=== PATIENT | female | born 1940 | race Caucasian/White ===

== ENCOUNTER 2017-04-15 08:26 | Inpatient (IN) | payer OTHER ==
[2017-03-27 10:25] VITALS: BMI 46.0
--- NOTE | 2017-03-27 10:56 | PAT Medication Instructions ---
Service Date Mar 27, 2017. Current Home Medication List Acetaminophen (Tylenol), 1,000 MG PO PRN Aspirin (Aspirin Ec), 81 MG PO QAM Calcium/Vitamin D (Os-Kelvin 500 Plus D), 1 TAB PO BID Celecoxib (Celebrex *), 200 MG PO QAM Wwbsqntvkwb-Tuevlrvxfsf-Qmidde (LEAPIN Digital Keys Joint Health Ad), 2 TAB PO QAM Lutein (Lutein), 20 MG PO QAM Multivitamin (Multivitamin), 1 TAB PO QAM Polyvinyl Alcohol-Povidone (Op (Refresh), 1 DROP OPB BID PRN for RN Psyllium (Metamucil Powder), 1 TSP PO QAM Tramadol (Ultram), 50 MG PO PRN Valsartan (Diovan), 320 MG PO QAM [Voltaren Gel], 1 DOSE TOP PRN Medication Instructions For Your Scheduled Surgery - Hold the following medications 2 weeks prior to surgery: Yvwbnwuzacb-Hjavsyvenbl-Ypspri (LEAPIN Digital Keys Joint Health Ad), 2 TAB PO QAM Lutein (Lutein), 20 MG PO QAM - Hold the following medications 24 hours prior to surgery: [Voltaren Gel], 1 DOSE TOP PRN - Hold the following medications the morning of surgery: Valsartan (Diovan), 320 MG PO QAM Multivitamin (Multivitamin), 1 TAB PO QAM Calcium/Vitamin D (Os-Kelvin 500 Plus D), 1 TAB PO BID Psyllium (Metamucil Powder), 1 TSP PO QAM - Take the following medications the morning of surgery with a sip of water OTHERWISE NOTHING TO EAT OR DRINK AFTER MIDNIGHT: Acetaminophen (Tylenol), 1,000 MG PO PRN (may take if needed up to 4 hours prior to surgery) Aspirin (Aspirin Ec), 81 MG PO QAM Celecoxib (Celebrex *), 200 MG PO QAM (instructed by surgeon to continue) Tramadol (Ultram), 50 MG PO PRN (may take if needed up to 4 hours prior to surgery) Polyvinyl Alcohol-Povidone (Op (Refresh), 1 DROP OPB BID PRN - Take the following medications as scheduled the night before surgery: Acetaminophen (Tylenol), 1,000 MG PO PRN Celecoxib (Celebrex *), 200 MG PO QAM (instructed by surgeon to continue) Tramadol (Ultram), 50 MG PO PRN Polyvinyl Alcohol-Povidone (Op (Refresh), 1 DROP OPB BID PRN If you have any questions please call us at [phone] or [phone] or [phone]
--- NOTE | 2017-03-27 11:51 | DIAGNOSTIC IMAGING REPORT ---
CHEST PREADMISSION(PA/LAT) CLINICAL HISTORY: 76 years-old Female presenting with preoperative assessment. TECHNIQUE: PA and lateral views of the chest were obtained. COMPARISON: None. FINDINGS: Cardiomediastinal silhouette normal. Apparent opacity at the paramediastinal right lung base may represent a prominent pericardial fat pad. Lungs and pleural spaces clear. Degenerative changes of the thoracic spine. Degenerative changes of the bilateral glenohumeral joints. Upper abdomen normal. IMPRESSION: 1. No acute cardiopulmonary disease. Electronically signed by: Zechariah Moran M.D. 03/27/2017 11:49 AM Dictated Date/Time: 03/27/2017 11:48 AM
[2017-03-27 12:00] LABS: URINE APPEARANCE CLEAR (CLEAR); URINE BILIRUBIN NEG (NEG); URINE COLOR YELLOW; URINE NITRITE NEG (NEG); URINE SPECIFIC GRAVITY 1.013 (1.000-1.030); UROBILINOGEN NEG (NEG); ZZUR CULT IF INDIC CLEAN CATCH NO
[2017-03-27 12:04] LABS: BASO % 0.3 %; BASO ABS # 0.02 K/uL (0-0.2); BUN/CREATININE RATIO 25.3 (10-20); CALCIUM 9.3 mg/dl (8.5-10.1); COMPLETE YES; CREATININE 0.73 mg/dl (0.60-1.20); EOS % 2.6 %; HEMATOCRIT 38.8 % (37-47); IG% 0.2 %; LYMPH % 30.6 %; LYMPH ABS # 1.92 K/uL (1.2-3.4); MEAN CORPUSCULAR HEMOGLOBIN 29.1 pg (25-34); MEAN CORPUSCULAR HGB CONC 33.5 g/dl (32-36); MEAN PLATELET VOLUME 10.1 fL (7.4-10.4); MONO % 7.8 %; NEUT % 58.5 %; PLATELET COUNT 235 K/uL (130-400); POTASSIUM 4.1 mmol/L (3.5-5.1); RED BLOOD COUNT 4.46 M/uL (4.2-5.4); WHITE BLOOD COUNT 6.27 K/uL (4.8-10.8)
[2017-03-27 12:06] LABS: MANUAL MICROSCOPIC REQUIRED? NO; REVIEW REQ? NO
[2017-03-27 12:07] LABS: PARTIAL THROMBOPLASTIN RATIO 1.1; PROTHROMBIN TIME (PATIENT) 10.7 SECONDS (9.0-12.0)
[2017-03-27 12:40] LABS: ESTIMATED AVERAGE GLUCOSE 108 mg/dl; HA1C FLAG Normal (Normal)
--- NOTE | 2017-04-14 17:55 | HISTORY & PHYSICAL EXAMINATION ---
DATE OF ADMISSION: 04/15/2017 CHIEF COMPLAINT: Chronic left shoulder pain. HISTORY OF PRESENT ILLNESS: This is a 76-year-old female patient of Dr. Mayo, complaining of chronic left shoulder pain, longstanding, now progressively getting worse. The patient has failed conservative treatment and has been diagnosed with end-stage osteoarthritis per clinical and radiographic exams. The patient wishes to proceed with a left total shoulder arthroplasty versus a reverse total shoulder arthroplasty. PAST MEDICAL HISTORY: Hypertension, history of pulmonary embolism, history of DVT, osteoarthritis, spine problems, neck problems, sciatica, and obesity. SOCIAL HISTORY: Nonsmoker and nondrinker. FAMILY HISTORY: Noncontributory. REVIEW OF SYSTEMS: The patient complains of chronic left shoulder pain and weakness. Otherwise, denies any shortness of breath, chest pain, nausea, vomiting or any other joint complaints. MEDICATIONS: Include valsartan 320 mg daily, Celebrex 200 mg daily, aspirin 81 mg daily, multivitamin daily, Lutein 20 mg daily, calcium plus vitamin D 1000 mg daily, Move Free daily, Metamucil daily, tramadol as needed, and Tylenol as needed. ALLERGIES: Include no known drug allergies. PHYSICAL EXAMINATION: GENERAL: Well-developed and well-nourished 76-year-old female in no acute distress. She is alert and oriented x3 and pleasant. HEENT: Normocephalic and atraumatic. Extraocular motions are intact. Pupils are equal and reactive to light. HEART: Regular rate and rhythm. No murmurs appreciated. LUNGS: Clear. ABDOMEN: Soft and nontender. Bowel sounds present. EXTREMITIES: Left shoulder reveals active range of motion to 170. She has crepitation with passive range of motion. She has 3/5 strength with external rotation and 4/5 strength, otherwise. NEUROLOGIC: Neurovascularly, she is intact in her left upper extremity. 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 She has a history of hypertension, pulmonary embolism, deep venous thrombosis, osteoarthritis, spine problems, neck problems, sciatica, and obesity. PLAN: The patient was advised of her diagnosis. Indications, risks, benefits, and postop course have all been reviewed. The patient wishes to proceed with a left total shoulder arthroplasty versus reverse total shoulder arthroplasty. Necessary consent forms, preoperative testing and clearances will be obtained.
[2017-04-15] VITALS (7 sets, daily range): BP systolic 105–160; BP diastolic 63–81; PULSE 69–94; TEMP 36.3–36.8; O2SAT 95–99; Ht 147.3 cm; Wt 101.3 kg
[~2017-04-15] VITALS: Ht 147.3 cm; Wt 101.3 kg
[~2017-04-15 08:26] MED LIST: ACET-1256 PO; ACETAMINOPHEN 500 MG TAB PO SCH; ASPI81TA28 PO; BUPIVACAINE 0.25% 30 ML VIAL ONE; CALC500C70 PO; CEFAZOLIN 2000 MG/60 ML D5W 60 ML IV SCH; CLB200 PO; CeleBREX 200 MG CAP PO SCH; DEXAMETHASONE 4 MG TAB PO SCH; DEXAMETHASONE SOD INJ 4 MG/ML VIAL ONE; FAMOTIDINE 20 MG TAB PO SCH; FENTANYL CITRATE INJ 50 MCG/1 ML 2 ML VIAL ONE; GABAPENTIN 300 MG CAP PO SCH; GLUC1TAB94 PO; LACTATED RINGER'S 1000ML 1,000 ML IV SCH; LACTATED RINGER'S 1000ML IV SCH; LIDOCAINE HCL 2% 2 ML VIAL (20MG/ML) ONE; LUTE20CA PO; METOCLOPRAMIDE HCL 10 MG TAB PO SCH; MIDAZOLAM HCL 1 MG/ML 2ML VIAL ONE; MULT-506 PO; POLYSOL OPB; PROPOFOL IV EMULSION 10 MG/ML 20 ML VIAL IV ONE; PSYL55.43 PO; TRAM-10 PO; VALS320T PO; VOLTAREN GEL TOP
--- NOTE | 2017-04-15 09:36 | History & Physical Bridge Note ---
H&P Re-Evaluation Bridge Note: I have examined the patient, reviewed the History & Physical and in the interval since the performance of the History & Physical I have noted the following changes of clinical significance: No changes noted
[2017-04-15] MEDS ORDERED: FENTANYL CITRATE INJ 50 MCG/1 ML 2 ML VIAL IV PRN (10:30)
[2017-04-15] MEDS ORDERED: ATROPINE SULFATE 0.1 MG/ML 5ML SYR IV PRN (10:30)
[2017-04-15] MEDS ORDERED: PROMETHAZINE HCL INJ 6.25 MG in SODIUM CHLORIDE 0.9% 50ML 50 ML IV PRN (10:30)
[2017-04-15] MEDS ORDERED: EpHEDrine SULFATE INJ 50 MG/ML AMP IV PRN (10:30)
[2017-04-15] MEDS ORDERED: ONDANSETRON INJ 2 MG/ML 2 ML VIAL IV PRN ×2 (10:30→15:15)
[2017-04-15] MEDS ORDERED: EpINEphrine HCL INJ 1 MG/ML 5ML SYRINGE ONE ×2 (11:14)
[2017-04-15] MEDS ORDERED: BACITRACIN 50000 UNIT VIAL ONE (11:14)
[2017-04-15] MEDS ORDERED: ONDANSETRON INJ 2 MG/ML 2 ML VIAL ONE (11:50)
[2017-04-15] MEDS ORDERED: DEXAMETHASONE SOD INJ 4 MG/ML VIAL ONE (11:50)
[2017-04-15] MEDS ORDERED: ROCURONIUM BROMIDE 10 MG/ML 5 ML VIAL IV ONE (11:50)
[2017-04-15] MEDS ORDERED: GLYCOPYRROLATE INJ 0.2 MG/ML VIAL ONE ×2 (12:40)
[2017-04-15] MEDS ORDERED: NEOSTIGMINE METHYLSULFATE 5 MG/5 ML SYR ONE (12:40)
[2017-04-15] MEDS ORDERED: EpHEDrine SULFATE INJ 50 MG/ML AMP ONE (12:41)
[2017-04-15] MEDS ORDERED: ZOLPIDEM TARTRATE 5 MG TAB PO PRN (15:15)
[2017-04-15] MEDS ORDERED: NALOXONE HCL 0.4 MG/1 ML VIAL/CARP IV PRN (15:15)
[2017-04-15] MEDS ORDERED: SOD PHOSPHATE/SOD BIPHOSPHATE ENEMA 132 ML BTL PR PRN (15:15)
[2017-04-15] MEDS ORDERED: MoRPHine SULFATE 2 MG/ML CARP IV PRN (15:15)
[2017-04-15] MEDS ORDERED: METOCLOPRAMIDE HCL INJ 5 MG/ML 2 ML VIAL IV PRN (15:15)
[2017-04-15] MEDS ORDERED: BISACODYL 10 MG SUPP PR PRN (15:15)
[2017-04-15] MEDS ORDERED: ARTIFICIAL TEARS OP SOLN OPB PRN ×2 (15:15)
--- NOTE | 2017-04-15 15:25 | [facility] Post Operative Brief Note ---
Immediate Operative Summary Operative Date Apr 15, 2017. Pre-Operative Diagnosis Left shoulder end-stage osteoarthritis Post-Operative Diagnosis Left shoulder end-stage osteoarthritis,biceps tenosynovitis ,rotator cuff tendinopathy,rotator cuff partial tear Procedure(s) Performed Left Total Shoulder Arthroplasty,rtc repair, bicep tenodesis Surgeon Dr. Mayo Complex Director Surgeon(s) Campbell Hinton PA-C Estimated Blood Loss 100 cc Findings as above Specimens A. Left humeral head Drains 2 hemovac Anesthesia general and regional Complication(s) None Disposition Recovery Room / PACU
--- NOTE | 2017-04-15 15:50 | DIAGNOSTIC IMAGING REPORT ---
LEFT SHOULDER MIN 2 VIEWS ROUTINE CLINICAL HISTORY: Post shoulder surgery COMPARISON: None FINDINGS: Alignment of the left shoulder arthroplasty is anatomic. There is no fracture or unexpected radiopaque foreign body. Drains and skin yaakov are present. IMPRESSION: Expected findings following left shoulder arthroplasty. Electronically signed by: Fermin Oconnor M.D. 04/15/2017 3:49 PM Dictated Date/Time: 04/15/2017 3:48 PM
--- NOTE | 2017-04-15 16:09 | Anesthesiology Progress Note ---
Anesthesia Post Op Note Date & Time Apr 15, 2017 at 16:08 Vital Signs Pain Intensity: 0 Vital Signs Past 12 Hours Date Time Temp Pulse Resp B/P (MAP) Pulse Ox O2 Delivery O2 Flow Rate FiO2 04/15/17 15:52 36.6 79 20 143/72 (89) 95 Nasal Cannula 2 04/15/17 15:46 133/73 04/15/17 15:46 133/73 04/15/17 15:44 79 24 95 04/15/17 15:44 79 24 04/15/17 15:44 79 24 95 04/15/17 15:44 79 24 04/15/17 15:41 125/64 04/15/17 15:41 125/64 04/15/17 15:39 79 18 04/15/17 15:39 79 18 95 04/15/17 15:39 79 18 04/15/17 15:39 79 18 95 04/15/17 15:36 142/82 04/15/17 15:36 142/82 04/15/17 15:34 82 21 97 04/15/17 15:34 82 21 04/15/17 15:34 82 21 04/15/17 15:34 82 21 97 04/15/17 15:31 139/73 04/15/17 15:31 139/73 04/15/17 15:29 82 19 04/15/17 15:29 82 19 04/15/17 15:29 82 19 97 04/15/17 15:29 82 19 97 04/15/17 15:25 136/70 04/15/17 15:25 136/70 04/15/17 15:24 19 04/15/17 15:24 83 19 04/15/17 15:24 36.6 83 18 130/72 94 Mask 10 04/15/17 15:24 19 04/15/17 15:24 83 19 04/15/17 08:51 36.8 69 20 160/80 99 Room Air Notes Mental Status: alert / awake / arousable, participated in evaluation Pt Amnestic to Procedure: Yes Nausea / Vomiting: adequately controlled Pain: adequately controlled Airway Patency, RR, SpO2: stable & adequate BP & HR: stable & adequate Hydration State: stable & adequate Anesthetic Complications: no major complications apparent Doing well. Pain controlled by ISB. No n/v
[2017-04-15] MEDS ORDERED: MoRPHine SULFATE 4 MG/ML 1 ML CARP\\VIAL IV PRN (16:30)
[2017-04-15] MEDS: D5W AND 1/2NSS + 20MEQ KCL 1,000 ML IV SCH (18:10)
--- NOTE | 2017-04-15 18:27 | Progress Note ---
Subjective Date of Service: Apr 15, 2017. Subjective Pt evaluation today including: conversation w/ patient, physical exam, chart review, lab review, review of inpatient medication list feeling good overall post op. no complaints. notes that prior PE was after driving ~17hrs back from [employer] nonstop. no other VTE events in her life. explained role of hospitalist/medical consult Review of Systems all other ROS otherwise negative except for as above Objective Vital Signs Date Time Temp Pulse Resp B/P (MAP) Pulse Ox O2 Delivery O2 Flow Rate FiO2 04/15/17 17:49 79 16 133/65 (87) 99 Nasal Cannula 2.0 04/15/17 17:12 36.4 80 16 136/81 (99) 97 Nasal Cannula 2.0 04/15/17 16:45 36.3 76 16 131/75 (93) 96 Nasal Cannula 2.0 04/15/17 16:31 140/82 04/15/17 16:27 75 17 96 04/15/17 16:27 75 17 04/15/17 16:26 132/78 04/15/17 16:22 85 19 04/15/17 16:22 85 19 96 04/15/17 16:21 127/94 04/15/17 16:17 86 19 04/15/17 16:17 84 19 95 04/15/17 16:16 132/74 04/15/17 16:12 77 16 96 04/15/17 16:12 77 16 04/15/17 16:11 139/104 04/15/17 16:07 75 15 04/15/17 16:07 75 15 97 04/15/17 16:06 130/79 04/15/17 16:02 82 19 96 04/15/17 16:02 83 19 04/15/17 16:01 143/72 04/15/17 15:57 82 21 96 04/15/17 15:57 81 21 04/15/17 15:56 128/81 04/15/17 15:52 76 24 97 04/15/17 15:52 76 24 04/15/17 15:52 36.6 79 20 143/72 (89) 95 Nasal Cannula 2 04/15/17 15:51 131/77 04/15/17 15:47 78 17 04/15/17 15:47 77 17 96 04/15/17 15:46 133/73 04/15/17 15:46 133/73 04/15/17 15:44 79 24 95 04/15/17 15:44 79 24 04/15/17 15:44 79 24 95 04/15/17 15:44 79 24 04/15/17 15:41 125/64 04/15/17 15:41 125/64 04/15/17 15:39 79 18 04/15/17 15:39 79 18 95 04/15/17 15:39 79 18 04/15/17 15:39 79 18 95 04/15/17 15:36 142/82 04/15/17 15:36 142/82 04/15/17 15:34 82 21 97 04/15/17 15:34 82 21 04/15/17 15:34 82 21 04/15/17 15:34 82 21 97 04/15/17 15:31 139/73 04/15/17 15:31 139/73 04/15/17 15:29 82 19 04/15/17 15:29 82 19 04/15/17 15:29 82 19 97 04/15/17 15:29 82 19 97 04/15/17 15:25 136/70 04/15/17 15:25 136/70 04/15/17 15:24 19 04/15/17 15:24 83 19 04/15/17 15:24 36.6 83 18 130/72 94 Mask 10 04/15/17 15:24 19 04/15/17 15:24 83 19 04/15/17 08:51 36.8 69 20 160/80 99 Room Air Physical Exam General Appearance: no apparent distress Eyes: EOMI ENT: hearing grossly normal Neck: trachea midline Respiratory/Chest: no respiratory distress, no accessory muscle use Extremities: normal range of motion (L arm in sling, immobilized. 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 anticipate ability to start tomorrow -if PRN BP control needed for marked HTN (SBP > 180, DBP > 100) can use hydralazine prn in the meantime VTE -prior provoked PE -encourage ambulation - d/w pt / family/ nursing -awaiting return info from ortho - will order heparin 5000 SQ Q12 as long as there are no surgical contraindications
[2017-04-15] MEDS ORDERED: HydrALAZINE 10 MG TAB PO PRN (18:30)
[2017-04-15] MEDS: CEFAZOLIN IV 2,000 MG in DEXTROSE 5% 50ML 50 ML IV SCH (20:13)
[2017-04-15] MEDS: OXYCODONE HCL 10 MG TABCR (OXYCONTIN) PO SCH (21:30)
[2017-04-15] MEDS: CALCIUM 600MG + VIT D 400 IU TAB PO SCH (21:31)
[2017-04-15] MEDS: DOCUSATE SODIUM 100 MG CAP PO SCH (21:32)
[2017-04-15] MEDS: ACETAMINOPHEN 500 MG TAB PO SCH (21:32)
[2017-04-16] VITALS (7 sets, daily range): BP systolic 91–116; BP diastolic 57–72; PULSE 60–85; TEMP 36.4–36.8; O2SAT 94–98
--- NOTE | 2017-04-16 00:18 | OPERATIVE REPORT ---
DATE OF OPERATION: 04/15/2017 INDICATION FOR PROCEDURE: A 76-year-old female with chronic left shoulder pain. She has had very longstanding left shoulder pain. She has had multiple injections, longstanding conservative management. Her radiographs now appeared to be aoab-fi-qyal in the glenohumeral joint. She had some glenoid bone loss and some medial migration of the humerus due to loss of the glenohumeral joint bone. She still has some maintained subacromial space. She has a type 2 acromion. She has an MRI demonstrating rotator cuff tendinopathy, likely some partial tearing of the rotator cuff, but this is an old MRI and does not have a recent MRI evaluation. She also had some biceps tenosynovitis noted. PREOPERATIVE DIAGNOSES: End-stage glenohumeral osteoarthritis left shoulder, rotator cuff tendinopathy, probable biceps tenosynovitis. POSTOPERATIVE DIAGNOSES: Left shoulder end-stage glenohumeral osteoarthritis, rotator cuff tendinopathy with high-grade partial tear bursal surface supraspinatus tendon, chronic biceps tenosynovitis with intact biceps. PROCEDURE: Left total shoulder arthroplasty with rotator cuff repair and biceps tenodesis. SURGEON: Dr. Mayo. IT SERVICE DELIVERY MANAGER: Campbell Hinton PA-C. ANESTHESIA: Regional block and general. OPERATIVE PROCEDURE: The patient taken to the operating room, anesthetized under regional block and general anesthetic. She was positioned on the operating room table in approximately 30- to 40-degree beach chair position. A towel roll was placed in the medial border of her left scapula. She was translated to left side of the bed so her shoulder could be manipulated off the bed. Her head was placed on a foam headrest. She had protective eyewear placed. She had TEDs and SCDs placed, Aden catheter was placed. Her left shoulder demonstrated she had an obese arm. She had more lower extremity obesity than she had around her shoulder. She had reasonably good passive motion. Her forward elevation was to about 150, external rotation around 50. Her abduction was about 80. Her shoulder clearly had joqp-[id number] crepitation in glenohumeral joint. Left shoulder was then sterilely prepped and draped with ChloraPrep. An anterior deltopectoral approach was performed. A longitudinal incision was made in the deltopectoral interval. Skin was incised sharply. The subcutaneous flaps were elevated off the fascia. The cephalic vein was dissected out and retracted laterally with the deltoid. The pectoralis was retracted medial. The upper centimeter of the pectoralis was released for inferior exposure. The clavipectoral fascia was divided at the lateral margin of the conjoint tendon and strap muscle, extended up to the CA ligament which was preserved. The patient had marked thickened biceps tenosynovitis. This biceps tenosynovium was resected and the biceps was tenodesed to the pectoralis tendon with kjujsn-pe-rqcpf #2 FiberWire suture and proximal biceps was resected. The subscapularis bursa was resected, there was very thickened subacromial bursa that was noted. There was a crescent-shaped high-grade partial tear of the supraspinatus with some osteophytes at the greater tuberosity in that area. The infraspinatus tendon was intact. The subscapularis tendon was intact. There was fairly large joint effusion. The bursa over the subscapularis and in the subacromial space was resected. The rotator cuff partial tear was debrided, the bone spurs resected off the greater tuberosity, leaving a high-grade crescent bursal-sided tear of the rotator cuff which was very small, it was only about a centimeter to 12 mm wide. The tear was not full-thickness. The rotator interval was opened up and the fluid was evacuated. A transtendinous incision was made through subscapularis tendon. A #1 Vicryl traction suture was made into the tendon capsule to control the free end. The circumflex vessels were tied off with silk ties and divided laterally. The subscapularis muscle lower fibers were divided at the level of the circumflex vessels down to the capsule and then reflected off the inferior capsule with a Kitner elevator and blunt Hohmann retractor was placed to protect the axillary nerve which was identified with a tug test. Humerus was gradually externally rotated to expose the inferior humeral osteophytes. The patient had large inferior humeral osteophytes from anterior to posterior. These were all resected with an artist chisel and a rongeur. This revealed the humeral head was completely devoid of any articular cartilage down to bone and had some bone loss. The capsule was released off the neck of the humerus. Then, the humerus was retracted posterior to the glenoid with a Fukuda retractor. The glenoid labrum remnants were resected and the remainder of the biceps tendon was resected. There was a large anterior-inferior osteophyte that was removed off the glenoid face, and releases were performed anterior-inferior and posterior-inferior using electrocautery on bone and a Antony elevator. Glenoid was completely devoid of any articular cartilage. There was some slight more posterior glenoid erosion but fairly concentric wear. There was significant bone loss. After releases were completed, the humerus was re-exposed with extension and external rotation. An oscillating saw was used to make an anatomic cut. The head fragment was between a 46 and a 43 mm diameter head. I used the Tornier Ascend Flex humeral components with Aequalis humeral head component and the Affiniti CortiLoc glenoid component. The humeral cut surface was initially retracted posterior to the glenoid, but the bone was a bit soft, so I felt we should prepare the humerus and use a cup protector first. So the humerus was re-exposed and the centralizing awl was used, followed by broaches up to a size 3 stem. Then, we placed cup protector in place and then retracted the humerus posterior to the glenoid. A central drill hole was made into the glenoid, followed by a reamer which we slightly eccentrically reamed anteriorly. Then, the central drill hole was widened and then the guide for the peripheral peg holes was placed and the peripheral peg holes were drilled. Then, we did a trial reduction for the 44 mm glenoid with a good trial fit with stable fixation. The trial was removed. The glenoid was irrigated copiously with antibiotic solution with bacitracin and then epinephrine-soaked tampon sponges were packed into all the holes and then the cement was vacuum mixed, we used Palacos G cement. The Affiniti CortiLoc glenoid size 44 was then cemented in position with central peg press fit. All excess cement was cleared. When the cement cured, attention was taken to humeral trial. We tried some trial heads and felt that the 46 x 17 standard offset head will give us the best stability. Small head gave too much posterior instability on exam. On exam with the 46 head, there was 50% shuck posteriorly, no posterior instability, and soft tissue tension on the subscap was satisfactory. Chose this for the final implant and noted the area of the eccentric offset. The final components were the 3A stem standard assembled to the 46 x 17 low offset (1.5 mm) Aequalis humeral head. After that component was assembled, we did harvest bone graft from the humeral head. Then, first the drill holes were made around the lesser tuberosity through the thicker bone in the bicipital groove and 3 transosseous #5 FiberWire sutures were placed. Then, we drilled holes and passed the passing suture with a Hewson suture passer and passed a #2 FiberWire through bone of the humerus, adjacent to the rotator cuff tear, and then we passed the tapered needle through the cuff to repair it in a horizontal mattress-like fashion and sutured this down with a secure repair. After the supraspinatus tendon was repaired, attention was taken to implanting the humeral component. The final component was a 3A standard stem assembled to the 46 x 17 low offset head. Before finally seating the humeral component, we did pack bone graft around the stem to enhance a tighter press fit. The humerus then reduced to the glenoid and the shoulder was noted to be stable. Then, the final closure was performed. The pectoralis was closed with esbquc-vd-cqaio #2 FiberWire. Two Hemovac drains were placed deep to the deltopectoral interval. Then, the subscapularis was repaired with the transosseous #5 FiberWire sutures using Helio-Eugenio suture technique, there was lateral row soft tissue fixation with dhjsaa-rx-xropb #2 FiberWire, and rotator interval was closed in maximal external rotation with interrupted #2 Fiberwire sutures which was about 45 degrees of external rotation. The arm was taken through range of motion now and repair was secured through 150 degrees of forward elevation, 45 degrees of external rotation and 90 degrees of abduction without any tension on the repair. After further irrigation, the deltopectoral interval was closed with yfszqu-jb-dpttr #1 Vicryl sutures, the subcutaneous tissues were closed with interrupted 2-0 Vicryl and skin was closed with yaakov. Sterile dressings applied and a sling immobilizer. Campbell Hinton PA-C, was my commercial real estate assistant. He functioned as commercial real estate assistant for the entire procedure. He assisted in soft tissue retraction, instrument management, suture management, and assisted in subcutaneous and skin closure and will participate in postoperative care of the patient. I attest to the content of the Intraoperative Record and any orders documented therein. Any exception s are noted below.
[2017-04-16] MEDS: D5W AND 1/2NSS + 20MEQ KCL 1,000 ML IV SCH ×2 (03:25→14:11)
[2017-04-16] MEDS: CEFAZOLIN IV 2,000 MG in DEXTROSE 5% 50ML 50 ML IV SCH (03:25)
[2017-04-16] MEDS ORDERED: NURSING DECISION MEDICATION ORDER SCH (03:30)
[2017-04-16] MEDS ORDERED: COUGH DROP (SUGAR FREE) LOZ 24 LOZ/1 BOX PO PRN (03:45)
[2017-04-16] MEDS: ACETAMINOPHEN 500 MG TAB PO SCH ×3 (06:14→22:23)
[2017-04-16 06:26] LABS: HEMATOCRIT 29.1 % (37-47); MEAN CELL VOLUME 88.4 fL (80-100); MEAN CORPUSCULAR HEMOGLOBIN 28.9 pg (25-34); MEAN CORPUSCULAR HGB CONC 32.6 g/dl (32-36); PLATELET COUNT 196 K/uL (130-400); RED BLOOD COUNT 3.29 M/uL (4.2-5.4)
--- NOTE | 2017-04-16 07:49 | Orthopedic Progress Note ---
Orthopedic Progress Note Date of Service Apr 16, 2017. Subjective Post OP Day: 1 Reports: feeling well, pain controlled w PO medications, Denies: complaints, chest pain, SOB, nausea / vomiting, light headedness, calf pain Objective N/V intact, capillary refill less than 2 sec., dressing C/D/I, A&O x3 Sling in tact, fingers mobile. Date Time Temp Pulse Resp B/P (MAP) Pulse Ox O2 Delivery O2 Flow Rate FiO2 04/16/17 03:16 36.4 69 16 91/57 (68) 96 Room Air 04/15/17 23:27 36.4 73 16 105/63 (77) 95 Room Air 04/15/17 20:43 36.4 84 16 110/68 (82) 95 Room Air 04/15/17 19:55 Room Air 04/15/17 19:30 94 16 127/78 (94) 99 Nasal Cannula 2.0 04/15/17 17:49 79 16 133/65 (87) 99 Nasal Cannula 2.0 04/15/17 17:12 36.4 80 16 136/81 (99) 97 Nasal Cannula 2.0 04/15/17 16:45 Nasal Cannula 2.0 04/15/17 16:45 36.3 76 16 131/75 (93) 96 Nasal Cannula 2.0 04/15/17 16:45 Nasal Cannula 2.0 04/15/17 16:31 140/82 04/15/17 16:27 75 17 96 04/15/17 16:27 75 17 04/15/17 16:26 132/78 04/15/17 16:22 85 19 04/15/17 16:22 85 19 96 04/15/17 16:21 127/94 04/15/17 16:17 86 19 04/15/17 16:17 84 19 95 04/15/17 16:16 132/74 04/15/17 16:12 77 16 96 04/15/17 16:12 77 16 04/15/17 16:11 139/104 04/15/17 16:07 75 15 04/15/17 16:07 75 15 97 04/15/17 16:06 130/79 04/15/17 16:02 82 19 96 04/15/17 16:02 83 19 04/15/17 16:01 143/72 04/15/17 15:57 82 21 96 04/15/17 15:57 81 21 04/15/17 15:56 128/81 04/15/17 15:52 76 24 97 04/15/17 15:52 76 24 04/15/17 15:52 36.6 79 20 143/72 (89) 95 Nasal Cannula 2 04/15/17 15:51 131/77 04/15/17 15:47 78 17 04/15/17 15:47 77 17 96 04/15/17 15:46 133/73 04/15/17 15:46 133/73 04/15/17 15:44 79 24 95 04/15/17 15:44 79 24 04/15/17 15:44 79 24 95 04/15/17 15:44 79 24 04/15/17 15:41 125/64 04/15/17 15:41 125/64 04/15/17 15:39 79 18 04/15/17 15:39 79 18 95 04/15/17 15:39 79 18 04/15/17 15:39 79 18 95 04/15/17 15:36 142/82 04/15/17 15:36 142/82 04/15/17 15:34 82 21 97 04/15/17 15:34 82 21 04/15/17 15:34 82 21 04/15/17 15:34 82 21 97 04/15/17 15:31 139/73 04/15/17 15:31 139/73 04/15/17 15:29 82 19 04/15/17 15:29 82 19 04/15/17 15:29 82 19 97 04/15/17 15:29 82 19 97 04/15/17 15:25 136/70 04/15/17 15:25 136/70 04/15/17 15:24 19 04/15/17 15:24 83 19 04/15/17 15:24 36.6 83 18 130/72 94 Mask 10 04/15/17 15:24 19 04/15/17 15:24 83 19 04/15/17 08:51 36.8 69 20 160/80 99 Room Air Laboratory Results 24 Hours: Test 04/16/17 05:09 Hematocrit 29.1 % Hemoglobin 9.5 g/dL Assessment & Plan Assessment: POD #1, Left TSA, biceps tenodesis, RCR Plan: PT/ OT DVT proph- ASA, Heparin per medicine D/C planning- Home w OPPT likely Thursday. Appreciate medicine input. Inhouse Planning Pain Management: Oxycontin, Morphine, PO Tylenol, Oxy IR DVT Prophylaxis: ASA, Heparin Drip Discharge Planning Discharge Planning: home with oppt Pain Management: Oxycontin, PO Tylenol, Oxy IR DVT Prophylaxis: ASA Therapy: Physical Therapy, Occupational Therapy
--- NOTE | 2017-04-16 07:51 | Discharge Instructions ---
Discharge Instructions Date of Service Apr 16, 2017. Admission Reason for Admission: Djd Of Shoulder Discharge Discharge Diagnosis / Problem: Left TSA, biceps tenodesis, RCR Discharge Goals Goal(s): Improve function Activity Recommendations Activity Limitations: as noted below . Instructions / Follow-Up Instructions / Follow-Up ACTIVITY RECOMMENDATIONS: SELF CARE INSTRUCTIONS AFTER TOTAL SHOULDER ARTHROPLASTY A. You may do daily exercises as taught in physical therapy while in hospital. No lifting with the operative arm. Please schedule your outpatient physical therapy appointment to begin within 2-3 days after leaving the hospital. Specific restrictions will be written on your physical therapy prescription that is provided to you. B. You are to wear your sling/immobilizer at all times EXCEPT when performing your daily exercises, participating in physical therapy and for hygiene purposes. C. You may perform dry, daily dressing changes. Please keep your incision covered. You may shower 48 hours after surgery. Do not apply soap or any ointment/ lotions directly over incision. Do not soak incision in bath tub/swimming pool. D. You may use ice as needed to operative shoulder. SPECIAL CARE INSTRUCTIONS: MEDICATION INSTRUCTIONS: *It is recommended you take Aspirin 325mg daily for four weeks post-op. VERY IMPORTANT TO READ AND REVIEW A. There are a few signs you need to watch for after you are home. Call [facility] at [phone] if you experience any of the followin. Increased severe shoulder pain. Some pain is expected especially when you exercise. 2. Increased swelling in you shoulder or arm; pain or swelling in either upper extremity. 3. Any fluid drainage from the incision. 4. Shortness of breath or chest pain. B. Please call [facility] at [phone] if you have any questions or concerns about your operation or recovery. C. Call your physician if: 1. Temperature is greater than 101 degrees (F). 2. Pain is not relieved by prescribed pain medications. 3. Increase drainage or redness from incision. 4. Unanswered questions or concerns. FOLLOW UP VISIT: Please call [facility] at [phone] to schedule a follow up appointment with Dr. Mayo or his PA in 12-14 days from your surgery date. Current Hospital Diet Patient's current hospital diet: Regular Diet Discharge Diet Recommended Diet: Regular Diet Procedures Procedures Performed: Left Total Shoulder Arthroplasty,rtc repair, bicep tenodesis Pending Studies Studies pending at discharge: no Laboratory Results Hemoglobin A1c Test 03/27/17 11:04 Range/Units Estimated Average Glucose 108 mg/dl Hemoglobin A1c 5.4 4.5-5.6 % Medical Emergencies . Who to Call and When: Medical Emergencies: If at any time you feel your situation is an emergency, please call 911 immediately. . Non-Emergent Contact Non-Emergency issues call your: Primary Care Provider . "Provider Documentation" section prepared by Campbell Hinton. . VTE Core Measure Inpt VTE Proph given/why not?: Other Anticoagulation (asa) [place] Drug Monitoring Program Search Results: patient reviewed within database, no issues identified
[2017-04-16 08:20] LABS: BUN/CREATININE RATIO 17.9 (10-20); CALCIUM 8.9 mg/dl (8.5-10.1); CREATININE 0.85 mg/dl (0.60-1.20); POTASSIUM 4.9 mmol/L (3.5-5.1)
--- NOTE | 2017-04-16 08:46 | Anesthesiology Progress Note ---
Anesthesia Post Op Note Date & Time Apr 16, 2017 at 08:45 Vital Signs Pain Intensity: 0.0 Vital Signs Past 12 Hours Date Time Temp Pulse Resp B/P (MAP) Pulse Ox O2 Delivery O2 Flow Rate FiO2 04/16/17 08:08 Room Air 04/16/17 08:03 36.6 72 16 100/60 (73) 97 Room Air 04/16/17 03:16 36.4 69 16 91/57 (68) 96 Room Air 04/15/17 23:27 36.4 73 16 105/63 (77) 95 Room Air Notes Mental Status: alert / awake / arousable Pt Amnestic to Procedure: Yes Nausea / Vomiting: adequately controlled Pain: adequately controlled Airway Patency, RR, SpO2: stable & adequate BP & HR: stable & adequate Hydration State: stable & adequate
--- NOTE | 2017-04-16 08:51 | Hospitalist Progress Note ---
Hospitalist Progress Note Date of Service Apr 16, 2017. (Haily Roper PA-C) Subjective Pt evaluation today including: conversation w/ patient, physical exam, chart review, lab review, review of studies Pain: 210 PO Intake: Good The patient was seen and examined this morning. Pt reports doing well. She was just up walking with PT and is waiting for OT to help teach her how to dress herself after shoulder surgery. She has been eating well without difficulty. Pt is not yet passing gas and has not had a bowel movement. She anticipates discharge home tomorrow. Pt lives alone but has a strong support system with neighbors who are willing to help shop for her, cook, and she has meals on wheels set up 3x a week. She plans on outpatient PT at [facility] rehab and has an appt next Thursday. Constitutional: No fever, No chills, No sweats Eyes: No diplopia, No problem reported ENT: + sore throat, No trouble swallowing Respiratory: No cough, No shortness of breath Cardiovascular: No chest pain, No palpitations Abdomen: No pain, No nausea, No vomiting, No diarrhea, No constipation Musculoskeletal: No joint pain, No muscle pain Neurologic: + numbness/tingling (From left wrist to left shoulder still numb. Pt does have feeling in her hand and fingers. ), No weakness Psychiatric: No depression symptoms, No anxiety Skin: No rash, No itch (Haily Roper, PADMA) Objective Vital Signs Date Time Temp Pulse Resp B/P (MAP) Pulse Ox O2 Delivery O2 Flow Rate FiO2 04/16/17 08:08 Room Air 04/16/17 08:03 36.6 72 16 100/60 (73) 97 Room Air 04/16/17 03:16 36.4 69 16 91/57 (68) 96 Room Air 04/15/17 23:27 36.4 73 16 105/63 (77) 95 Room Air 04/15/17 20:43 36.4 84 16 110/68 (82) 95 Room Air 04/15/17 19:55 Room Air 04/15/17 19:30 94 16 127/78 (94) 99 Nasal Cannula 2.0 04/15/17 17:49 79 16 133/65 (87) 99 Nasal Cannula 2.0 04/15/17 17:12 36.4 80 16 136/81 (99) 97 Nasal Cannula 2.0 04/15/17 16:45 Nasal Cannula 2.0 04/15/17 16:45 36.3 76 16 131/75 (93) 96 Nasal Cannula 2.0 04/15/17 16:45 Nasal Cannula 2.0 04/15/17 16:31 140/82 04/15/17 16:27 75 17 96 04/15/17 16:27 75 17 04/15/17 16:26 132/78 04/15/17 16:22 85 19 04/15/17 16:22 85 19 96 04/15/17 16:21 127/94 04/15/17 16:17 86 19 04/15/17 16:17 84 19 95 04/15/17 16:16 132/74 04/15/17 16:12 77 16 96 04/15/17 16:12 77 16 04/15/17 16:11 139/104 04/15/17 16:07 75 15 04/15/17 16:07 75 15 97 04/15/17 16:06 130/79 04/15/17 16:02 82 19 96 04/15/17 16:02 83 19 04/15/17 16:01 143/72 04/15/17 15:57 82 21 96 04/15/17 15:57 81 21 04/15/17 15:56 128/81 04/15/17 15:52 76 24 97 04/15/17 15:52 76 24 04/15/17 15:52 36.6 79 20 143/72 (89) 95 Nasal Cannula 2 04/15/17 15:51 131/77 04/15/17 15:47 78 17 04/15/17 15:47 77 17 96 04/15/17 15:46 133/73 04/15/17 15:46 133/73 04/15/17 15:44 79 24 95 04/15/17 15:44 79 24 04/15/17 15:44 79 24 95 04/15/17 15:44 79 24 04/15/17 15:41 125/64 04/15/17 15:41 125/64 04/15/17 15:39 79 18 04/15/17 15:39 79 18 95 04/15/17 15:39 79 18 04/15/17 15:39 79 18 95 04/15/17 15:36 142/82 04/15/17 15:36 142/82 04/15/17 15:34 82 21 97 04/15/17 15:34 82 21 04/15/17 15:34 82 21 04/15/17 15:34 82 21 97 04/15/17 15:31 139/73 04/15/17 15:31 139/73 04/15/17 15:29 82 19 04/15/17 15:29 82 19 04/15/17 15:29 82 19 97 04/15/17 15:29 82 19 97 04/15/17 15:25 136/70 04/15/17 15:25 136/70 04/15/17 15:24 19 04/15/17 15:24 83 19 04/15/17 15:24 36.6 83 18 130/72 94 Mask 10 04/15/17 15:24 19 04/15/17 15:24 83 19 04/15/17 08:51 36.8 69 20 160/80 99 Room Air (Haily Roper PA-C) Physical Exam General Appearance: WD/WN, no apparent distress, + obese Eyes: PERRL, EOMI ENT: hearing grossly normal, pharynx normal Neck: supple, no JVD Respiratory/Chest: lungs clear, no respiratory distress, no accessory muscle use Cardiovascular: regular rate, rhythm, no murmur Abdomen: non tender, soft, no organomegaly, + pertinent finding (hypoactive bowel sounds. ) Extremities: non-tender, no pedal edema, no calf tenderness, + pertinent finding (Left shoulder dressing c/d/i, no surrounding erythema, in sling) Neurologic/Psychiatric: alert, normal mood/affect, oriented x 3 Skin: normal color, warm/dry (Haily Roper PA-C) Laboratory Results Last 24 Hours Test 04/16/17 05:09 04/16/17 07:37 White Blood Count 9.70 K/uL Red Blood Count 3.29 M/uL Hemoglobin 9.5 g/dL Hematocrit 29.1 % Mean Corpuscular Volume 88.4 fL Mean Corpuscular Hemoglobin 28.9 pg Mean Corpuscular Hemoglobin Concent 32.6 g/dl Platelet Count 196 K/uL Sodium Level 136 mmol/L Potassium Level 4.9 mmol/L Chloride Level 105 mmol/L Carbon Dioxide Level 26 mmol/L Anion Gap 5.0 mmol/L Blood Urea Nitrogen 15 mg/dl Creatinine 0.85 mg/dl Est Creatinine Clear Calc Drug Dose 59.6 ml/min Estimated GFR () 78.2 Estimated GFR (Non- 67.5 BUN/Creatinine Ratio 17.9 Random Glucose 182 mg/dl Calcium Level 8.9 mg/dl (Haily Roper, PA-C) Assessment and Plan 76 yo F s/p elective Left shoulder total arthroplasty, rotator cuff repair, bicep tenodesis by Dr. Mayo on 04/15 HTN - hold Diovan 320 qAM again today as BP is around 100 systolic. May be able to resume tomorrow. - if PRN BP control needed for marked HTN (SBP > 180, DBP > 100) can use hydralazine prn in the meantime - Cont ASA 81 mg daily VTE -prior provoked PE -encourage ambulation - pt understands and is in agreement -awaiting return info from ortho - will order heparin 5000 SQ Q12 as long as there are no surgical contraindications DVT ppx: heparin subq Q12H Disposition: From home, planned dc tomorrow, outpatient pt/ot set up at [facility] (Haily Roper, STEWART-C) I agree with PA assessment and plan and have seen and examined pt myself Resting comfortably in bed No distress noted Still remains hypotensive, agree with holding divan at this time until discharge Likely DC in next 24 hrs No further recs at this time DVT, PT/OT, dispo per primary team (Elvis Meyer D.O.)
[2017-04-16] MEDS: OXYCODONE HCL 10 MG TABCR (OXYCONTIN) PO SCH ×2 (09:00→20:55)
[2017-04-16] MEDS ORDERED: VALSARTAN 80 MG TAB PO SCH (09:00)
[2017-04-16] MEDS ORDERED: NON-FORMULARY MEDICATION (Lutein 20 MG) PO SCH (09:00)
[2017-04-16] MEDS: CALCIUM 600MG + VIT D 400 IU TAB PO SCH ×2 (09:10→20:55)
[2017-04-16] MEDS: MULTIVITAMIN TAB PO SCH (09:10)
[2017-04-16] MEDS: DOCUSATE SODIUM 100 MG CAP PO SCH ×2 (09:10→20:56)
[2017-04-16] MEDS: ASPIRIN 81 MG ECTAB PO SCH (09:11)
[2017-04-16] MEDS: PSYLLIUM 58.6% PWD PACK S\\F PO SCH (09:11)
[2017-04-16] MEDS: PANTOprazole SOD 40 MG TAB PO SCH (09:11)
[2017-04-16] MEDS: HEPARIN SOD 5000 UNIT/0.5 ML CARP SQ SCH ×2 (09:15→21:00)
[2017-04-16] MEDS: MAGNESIUM HYDROXIDE SUSP 30 ML UDC PO PRN (12:46)
[2017-04-16] MEDS: OXYCODONE HCL IR 5 MG TAB (IMMEDIATE RELEASE) PO PRN ×3 (14:16→23:55)
[2017-04-17] MEDS: OXYCODONE HCL IR 5 MG TAB (IMMEDIATE RELEASE) PO PRN ×2 (04:01→09:00)
[2017-04-17] MEDS: ACETAMINOPHEN 500 MG TAB PO SCH (05:47)
[2017-04-17 06:13] LABS: HEMATOCRIT 31.6 % (37-47); MEAN CORPUSCULAR HEMOGLOBIN 28.1 pg (25-34); MEAN PLATELET VOLUME 10.2 fL (7.4-10.4); PLATELET COUNT 227 K/uL (130-400); RED BLOOD COUNT 3.59 M/uL (4.2-5.4); WHITE BLOOD COUNT 10.07 K/uL (4.8-10.8)
[2017-04-17 06:39] LABS: BUN/CREATININE RATIO 25.1 (10-20); CALCIUM 8.5 mg/dl (8.5-10.1); CREATININE 0.82 mg/dl (0.60-1.20); POTASSIUM 4.4 mmol/L (3.5-5.1)
[2017-04-17 07:30] VITALS: BP 105/68; PULSE 80; TEMP 36.7; O2SAT 94
[2017-04-17 08:08] VITALS: O2SAT 94
[2017-04-17] MEDS: DOCUSATE SODIUM 100 MG CAP PO SCH (08:53)
[2017-04-17] MEDS: CALCIUM 600MG + VIT D 400 IU TAB PO SCH (08:53)
[2017-04-17] MEDS: MULTIVITAMIN TAB PO SCH (08:54)
[2017-04-17] MEDS: ASPIRIN 81 MG ECTAB PO SCH (08:54)
[2017-04-17] MEDS: PSYLLIUM 58.6% PWD PACK S\\F PO SCH (08:55)
[2017-04-17] MEDS: PANTOprazole SOD 40 MG TAB PO SCH (08:55)
[2017-04-17] MEDS: OXYCODONE HCL 10 MG TABCR (OXYCONTIN) PO SCH (08:55)
[2017-04-17] MEDS: HEPARIN SOD 5000 UNIT/0.5 ML CARP SQ SCH (08:59)
[2017-04-17] MEDS: MAGNESIUM HYDROXIDE SUSP 30 ML UDC PO PRN (09:00)
--- NOTE | 2017-04-17 10:11 | Orthopedic Progress Note ---
Orthopedic Progress Note Date of Service Apr 17, 2017. Subjective Post OP Day: 2 Reports: feeling well, nausea / vomiting (only after taking two pain pills this morning at 3am), calf pain, pain controlled w PO medications, Denies: complaints , chest pain, SOB, light headedness Additional Notes: patient notices some dry heaving after taking two pain medications this morning. She states she will use Tylenol and ICE to help with pain when going home instead of taking two. Objective calves soft nontender, splint C/D/I, capillary refill less than 2 sec., dressing C/D/I, A&O x3, toes mobile Date Time Temp Pulse Resp B/P (MAP) Pulse Ox O2 Delivery O2 Flow Rate FiO2 04/17/17 08:08 94 Room Air 04/17/17 07:30 36.7 80 14 105/68 (80) 94 Room Air 04/17/17 07:20 Room Air 04/16/17 23:55 Room Air 04/16/17 22:49 36.8 83 16 94/57 (69) 96 Room Air 04/16/17 15:47 36.5 71 18 108/72 (84) 98 Room Air 04/16/17 15:45 Room Air 04/16/17 12:16 36.4 60 20 106/72 (83) 96 Room Air Laboratory Results 24 Hours: Test 04/17/17 04:55 Hematocrit 31.6 % Hemoglobin 10.1 g/dL Assessment & Plan Assessment: POD #2, Left TSA, biceps tenodesis, RCR Plan: PT/ OT DVT proph- ASA, Heparin per medicine D/C planning- Home w OPPT likely Thursday. Appreciate medicine input. Inhouse Planning Pain Management: Oxycontin, Morphine, PO Tylenol, Oxy IR DVT Prophylaxis: ASA, Heparin Drip Discharge Planning Discharge Planning: home with oppt Pain Management: Oxycontin, PO Tylenol, Oxy IR DVT Prophylaxis: ASA Therapy: Physical Therapy, Occupational Therapy
[2017-04-17] MEDS ORDERED: OXYSR10 PO (10:14)
[2017-04-17] MEDS ORDERED: RXC5 PO (10:14)
[2017-04-17] MEDS ORDERED: NURSING VERBAL MED ORDER ONE (10:15)
[2017-04-17 10:21] VITALS: BP 105/68; PULSE 80; TEMP 36.7; O2SAT 94
[2017-04-17] MEDS ORDERED: ONDANSETRON 4MG OD TAB PO ONE (10:30)
--- NOTE | 2017-04-30 09:43 | DISCHARGE SUMMARY ---
HISTORY OF PRESENT ILLNESS: This is a 76-year-old female patient of Dr. Mayo, complaining of chronic left shoulder pain, long-standing, progressively getting worse. The patient failed conservative treatment and elected to proceed with a left total shoulder arthroplasty. PAST MEDICAL HISTORY: Hypertension, pulmonary embolism, DVT, osteoarthritis, spine problems, neck problems, sciatica and obesity. POSTOPERATIVE COURSE: The patient underwent a left shoulder total shoulder arthroplasty, rotator cuff repair and biceps tenodesis on 04/15/2017. She was followed closely with medical consultation, DVT prophylaxis in the form of aspirin, physical therapy and pain control. The patient did well postoperatively and was discharged home on postoperative day #2. PHYSICAL EXAMINATION: On discharge, left shoulder incision was clean, dry and intact. [place] were intact. Skin edges were approximated well. There was no redness or drainage. Neurologically and neurovascularly, she is intact in her left upper extremity. DIAGNOSIS: Status post left total shoulder arthroplasty, biceps tenodesis and rotator cuff repair. She also has a history of hypertension, pulmonary embolism, osteoarthritis, spine problems, neck problems, sciatica and obesity. PLAN: The patient was discharged home with outpatient physical therapy. She will continue her preadmission medications with the addition of pain control medications. She will follow up with Dr. Mayo as scheduled as an outpatient.
== END 2017-04-17 11:21 | disposition home or self-care (01) | DRG 483 ==
LOC: C.ACU 08:26 → C.3E 09:30 → ENRESERV 15:50
PROVIDERS: ADMIT Orthopaedic Surgery Sports Medicine; ATTEND Orthopaedic Surgery Sports Medicine
PROC: 0RRK0JZ Replacement of Left Shoulder Joint with Synthetic Substitute, Open Approach (ICD-10-PCS; principal; 2017-04-15 10:15)
PROC: 0LM20ZZ Reattachment of Left Shoulder Tendon, Open Approach (ICD-10-PCS; principal; 2017-04-15 10:15)
DX: M19.012 Primary osteoarthritis, left shoulder (principal); Z68.42 Body mass index [BMI] 45.0-49.9, adult; M75.102 Unspecified rotator cuff tear or rupture of left shoulder, not specified as traumatic; I10 Essential (primary) hypertension; E66.9 Obesity, unspecified; Z79.82 Long term (current) use of aspirin; Z79.899 Other long term (current) drug therapy; Z86.711 Personal history of pulmonary embolism; Z86.718 Personal history of other venous thrombosis and embolism

== ENCOUNTER 2022-02-05 07:25 | Inpatient (IN) ==
--- NOTE | 2021-12-26 15:23 | PAT Medication Instructions ---
Medication Instructions Date of Service December 26, 2021 Home Medications acetaminophen 500 mg tablet 1,000 mg PO Q6H PRN aspirin 81 mg tablet,delayed release 81 mg PO QAM calcium carbonate 600 mg-vitamin D3 10 mcg (400 unit) tablet (Calcium 600 + D(3)) 1 tab PO QAM camphor-menthol 0.2 %-3.5 % topical gel 1 applic TOPICAL BID PRN celecoxib 200 mg capsule (Celebrex) 200 mg PO QAM diclofenac sodium 1 % topical gel 2 g TOPICAL QID PRN fluticasone propionate 50 mcg/actuation nasal spray,suspension 2 spray INTRANASAL DAILY PRN hydrochlorothiazide 25 mg tablet 25 mg PO QAM multivitamin 1 tab PO QAM prednisone 1 mg tablet 0 mg PO DAILY psyllium husk 3.4 gram/5.4 gram oral powder (Metamucil) 1 tbsp PO QAM tolterodine 2 mg capsule,extended release 24 hr (Detrol LA) 2 mg PO QAM tramadol 50 mg tablet 50 mg PO Q6H PRN valsartan 320 mg tablet 320 mg PO QAM ASK your surgeon for instructions celecoxib 200 mg capsule (Celebrex) 200 mg PO QAM ASK your prescriber and surgeon aspirin 81 mg tablet,delayed release 81 mg PO QAM STOP taking 24 hours before surgery camphor-menthol 0.2 %-3.5 % topical gel 1 applic TOPICAL BID PRN diclofenac sodium 1 % topical gel 2 g TOPICAL QID PRN DO NOT take the morning of surgery calcium carbonate 600 mg-vitamin D3 10 mcg (400 unit) tablet (Calcium 600 + D(3)) 1 tab PO QAM hydrochlorothiazide 25 mg tablet 25 mg PO QAM multivitamin 1 tab PO QAM psyllium husk 3.4 gram/5.4 gram oral powder (Metamucil) 1 tbsp PO QAM tolterodine 2 mg capsule,extended release 24 hr (Detrol LA) 2 mg PO QAM valsartan 320 mg tablet 320 mg PO QAM Take morning of surgery With a small sip of water, OTHERWISE NOTHING TO EAT OR DRINK AFTER MIDNIGHT: acetaminophen 500 mg tablet 1,000 mg PO Q6H PRN (okay to take up to 4 hours prior to surgery if needed) fluticasone propionate 50 mcg/actuation nasal spray,suspension 2 spray INTRANASAL DAILY PRN (if needed) prednisone 1 mg tablet 0 mg PO DAILY tramadol 50 mg tablet 50 mg PO Q6H PRN (okay to take up to 4 hours prior to surgery if needed) Take evening before surgery acetaminophen 500 mg tablet 1,000 mg PO Q6H PRN (if needed) fluticasone propionate 50 mcg/actuation nasal spray,suspension 2 spray INTRANASAL DAILY PRN (if needed) tramadol 50 mg tablet 50 mg PO Q6H PRN (if needed) Other Notes If you have any questions please call us at [phone] or [phone] or [phone] or [phone]
--- NOTE | 2021-12-27 13:50 | Anesthesiology Consultation ---
Date of Service December 27, 2021 Assessment & Plan (1) Encounter for pre-operative examination: - PCP office visit 09/24/21 [facility]: "...in the process of scheduling to see Orthopedic surgery in [place] to consider replacement. Dyspnea is unchanged. She gets dyspnea with heavy exertion that improves with rest. She has undergone full cardiac workup which included a negative stress test but clean coronaries on cardiac catheterization. It is felt symptoms are likely due to weight which has not changed since last check. She is at least not worsening. Hypertension is been stable under good control with hydrochlorothiazide and valsartan..." Pt experiencing dyspnea walking short distances on level ground per 05/01/2020 cardio note, negative cardiac workup. - anesthesia record: Pharyngitis after 2017 TSA. Grade 1 view, MAC 3 ETT 7.5 OET + PNB. - COVID screening: Per assessment on 12/27/2021: Travel screen driving to [place] 01/08 and returning 01/21/22, no known COVID-19 positive contacts or current COVID-19 related symptoms in past 2 weeks. Patient vaccinated. Surgeon arranging preop COVID testing, scheduled 02/03/2022. Awaiting results. Chart Review Chart Review: Acceptable Risk for Surgery and Patient seen in Pre Admission Testing Teaching & Discussion Pre-Anesthesia Teaching/Discussion Notes: Instructed NPO after midnight before surgery, except medications with 15 cc of water. Medication instructions provided according to the PAT guidelines. History Surgery Operation Date: 02/05/22 10:05 Proposed Procedures p Right Total Shoulder Arthroplasty - Johnny Mayo MD Height/Weight Height: 4 ft 10 in Weight: 104.3 kg Allergies Allergy/AdvReac Type Severity Reaction Status Date / Time oxycodone AdvReac Intermediate Nausea and Verified 12/27/21 14:42 vomiting Additional Notes: Pt states surgeon's office is aware and coordinating appropriate pain management plan. Medications Home Medications Medication Instructions Recorded Confirmed Last Taken acetaminophen 500 mg tablet 1,000 mg PO Q6H PRN 12/26/21 12/26/21 Unknown aspirin 81 mg tablet,delayed 81 mg PO QAM 12/26/21 12/26/21 Unknown release calcium carbonate 600 mg-vitamin 1 tab PO QAM 12/26/21 12/26/21 Unknown D3 10 mcg (400 unit) tablet (Calcium 600 + D(3)) camphor-menthol 0.2 %-3.5 % 1 applic TOPICAL BID PRN 12/26/21 12/26/21 Unknown topical gel celecoxib 200 mg capsule (Celebrex) 200 mg PO QAM 12/26/21 12/26/21 Unknown diclofenac sodium 1 % topical gel 2 g TOPICAL QID PRN 12/26/21 12/26/21 Unknown fluticasone propionate 50 2 spray INTRANASAL DAILY PRN 12/26/21 12/26/21 Unknown mcg/actuation nasal spray,suspension hydrochlorothiazide 25 mg tablet 25 mg PO QAM 12/26/21 12/26/21 Unknown multivitamin 1 tab PO QAM 12/26/21 12/26/21 Unknown prednisone 1 mg tablet 0 mg PO DAILY 12/26/21 12/26/21 Unknown psyllium husk 3.4 gram/5.4 gram 1 tbsp PO QA 12/26/21 12/26/21 Unknown oral powder (Metamucil) tolterodine 2 mg capsule,extended 2 mg PO QA 12/26/21 12/26/21 Unknown release 24 hr (Detrol LA) tramadol 50 mg tablet 50 mg PO Q6H PRN 12/26/21 12/26/21 Unknown valsartan 320 mg tablet 320 mg PO QAM 12/26/21 12/26/21 Unknown Past Medical History Medical History (Updated 12/27/21 @ 14:59 by Amelia Alas PA-C) Asthma remote hx per pt, normal PFTs per 04/2020 cardio note; denies inhaler use need, chronic and controlled per pt Dyspnea on effort with walking, chronic, denies change or worsening Hyperlipidemia NO MEDS Hypertension controlled, stable per pt Obesity, Class III, BMI 40-49.9 (morbid obesity) Osteoarthritis Pulmonary embolism bilat; 2011-S/P LONG DISTANCE DRIVE-WAS TREATED WITH BLOOD THINNER FOR 6 MONTHS-NO ISSUES SINCE Stress incontinence Patient denies h/o stroke, seizures, heart attack, heart failure, DM or blood transfusions. Exercise / Class Metabolic Activity III < 4 Walking/Shop/Light housework (SOB with activity, denies CP; pt reports ongoing with current weight, denies change or worsening) Past Family History Family History Other No known health problems Past Surgical History Surgical History (Updated 12/30/21 @ 08:44 by Amelia Alas PA-C) History of appendectomy History of cardiac cath 04/2020 [facility]-NO STENTS: The left main, left anterior descending, left circumflex, and right coronary artery all do not have any severe flow-limiting stenosis. However, all the vessels are extremely tortuous. Then, we performed left heart catheterization, left ventriculogram. Left ventricular systolic function is normal. Ejection fraction by visual estimate is 45-50%. There is no gradient across the aortic valve. 2011 [facility] NO STENTS NO CARDIOLOGY History of tonsillectomy History of total knee replacement R/L History of total shoulder replacement LEFT. Pharyngitis after 2017 TSA. Grade 1 view, MAC 3 ETT 7.5 OET + PNB. S/P foot surgery, right BUNIONECTOMY Past Anesthesia History No Family Hx of Anesthesia Complications and Other (sore throat with L TSA) History of PONV No Hx of Motion Sickness and History of PONV (with oxycodone) Social History Smoking Status: Never smoker Do You Dip or Chew Tobacco: No Hx Alcohol Use: No Hx Substance Use: No Review of Systems Occasional snoring, denies witnessed apneas. Occasional heartburn resolves with TUMS or Gas-X. Patient denies chest pain, shortness of breath, fever, chills, cough, wheezing, or palpitations. Physical Exam Vital Signs Vitals BP 127/68 P 81 TEMP 97.5 SP02 98% on RA RESP 17 Physical Full cervical extension range of motion without pain TMD 3.5 finger breaths Mallampati Score 3 Dentition: intact, partial-upper sides bilat, several missing teeth-upper and lower back and sides bilat, multiple caps/crowns-none in front; denies chipped or loose teeth, implants or bridges Lungs: normal respiratory effort. Clear throughout to auscultation, no adventitious breath sounds Cardiac: regular rate and rhythm, no murmurs noted Carotid arteries: negative bruit bilat Lab Results Anesthesia Preop Results Results Anesthesia Widget: WBC 8.16 K/uL (4.8-10.8) 12/27/21 Hgb 11.8 g/dL (12.0-16.0) L 12/27/21 Hct 37.0 % (37-47) 12/27/21 Plt 298 K/uL (130-400) 12/27/21 Na 138 mmol/L (136-145) 12/27/21 K 4.0 mmol/L (3.5-5.1) 12/27/21 Cl 101 mmol/L (98-107) 12/27/21 CO2 30 mmol/L (21-32) 12/27/21 BUN 33 mg/dl (6-23) H 12/27/21 Creat 1.23 mg/dl (0.6-1.2) H 12/27/21 Glucose Level 117 mg/dl (70-99(Fasting)) H 12/27/21 PT 10.8 Seconds (9.0-12.0) 12/27/21 PTT 26.5 Seconds (21.0-31.0) 12/27/21 INR 1.0 (0.9-1.1) 12/27/21 HA1c 5.6 % (4.5-5.6) 12/27/21 Urine Color Dark Yellow 12/27/21 Urine Appearance Clear (Clear) 12/27/21 Urine pH 5.0 (4.5-7.5) 12/27/21 Urine Specific [place] 1.025 (1.000-1.030) 12/27/21 Urine Protein Negative (Negative) 12/27/21 Urine Glucose (UA) Negative (Negative) 12/27/21 Urine Ketones Trace (Negative) H 12/27/21 Urine Blood Negative (Negative) 12/27/21 Urine Nitrite Negative (Negative) 12/27/21 Urine Bilirubin Negative (Negative) 12/27/21 Urine Urobilinogen Negative (Negative) 12/27/21 Urine Leukocyte Esterase 2+ (Negative) H 12/27/21 Urine WBC (Auto) >30 /hpf (0-5) H 12/27/21 Urine RBC (Auto) 5-10 /hpf (0-4) H 12/27/21 Urine Hyaline Casts (Auto) 5-10 /lpf (0-5) H 12/27/21 Urine Epithelial Cells (Auto) >30 /lpf (0-5) H 12/27/21 Urine Bacteria (Auto) Negative (Negative) 12/27/21 Blood Type O Positive 12/27/21 Antibody Screen NEGATIVE 12/27/21 Testing Electrocardiogram Date: 12/27/21 Sinus rhythm with 1st degree AV block, rate 73 bpm Left axis deviation Chest X-Ray Date: 12/27/21 The heart is top normal for projection. The pulmonary vasculature is noncongested. Chronic interstitial thickening is similar to previous. Mild scarring/atelectasis is noted at the lung bases. The lungs and pleural spaces are otherwise clear. There is no pneumothorax. The skeletal structures are osteopenic. The bony thorax appears intact. Left shoulder arthroplasty is in place. Advanced arthritic change is seen in the right shoulder. Degenerative change and scoliosis are noted in the thoracic spine. IMPRESSION: No active disease in the chest. Echocardiogram Date: 04/16/20 EF 55-59% Grade I diastolic dysfunction Normal LV wall motion Mild aortic valve regurgitation Mild mitral regurgitation Mild tricuspid regurgitation Proximal ascending thoracic aorta borderline enlarged Stress Test Date: 04/03/20 Pharmacologic MPHR 85% Concerning for ischemia Subsequent cath without severe flow-limiting stenosis, vessel are extremely tortuous per report. Cardiac Catheterization Date: 03/24/20 The left main, left anterior descending, left circumflex, and right coronary artery all do not have any severe flow-limiting stenosis. However, all the vessels are extremely tortuous. Then, we performed left heart catheterization, left ventriculogram. Left ventricular systolic function is normal. Ejection fraction by visual estimate is 45-50%. There is no gradient across the aortic valve. Other Testing Head CT 05/29/21 1. No acute intracranial process seen. 2. 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 ADDENDUM: After further review of the CT images, there is CT detector artifact noted in the left paramidline posterior frontal region best seen on coronal image 32/67 and sagittal image 23/52. This results in the 4 millimeter area of decreased attenuation in the region of the genu of the left internal capsule and is actually artifact and does not correspond to lacunar-type CVA. IMPRESSION: 1. No acute intracranial process observed. 2. Previously noted 4 millimeter focus of decreased attenuation in the anterior limb of the left internal capsule is actually due to CT detector artifact rather than lacunar-type CVA.
--- NOTE | 2022-02-04 13:03 | History & Physical Report ---
Date of Service February 04, 2022 Assessment & Plan (1) Rotator cuff arthropathy of right shoulder: Plan: Treatment options discussed with the patient. She would like to proceed with surgical intervention. Risks, benefits and alternatives to surgery including but not limited to infection, DVT, pain, stiffness, need for revision surgery, damage to blood vessels, damage to nerves, PE, , were discussed with the patient and they wish to proceed. Plan on right reverse total shoulder arthroplasty. Surgery scheduled for 02/05/22 at [facility] with Dr. Mayo. All questions answered. Will plan on xarelto post op for DVT prophylaxis due to history of PE. F/u post op. History of Present Illness Chief Complaint: Right shoulder pain Primary Care Provider: Daniel Glen Yun 81 year old female with PMHx significant for BENITEZ, asthma, HTN, GERD, PE who presents with ongoing right shoulder pain. She has failed conservative measures. Pain is interfering with her daily activity. She would like to proceed with replacement. Patient denies headaches, sweats, fevers, chills, double vision, blurred vision, cough, sore throat, dysphagia, chest pain, sob, wheezing, n/v/d/c, numbness, tingling, fatigue, urinary symptoms, mood disorders. ROS positive for right shoulder pain and stiffness. Allergies Allergy/AdvReac Type Severity Reaction Status Date / Time oxycodone AdvReac Intermediate Nausea and Verified 12/27/21 14:42 vomiting Home Medications Medication Instructions Recorded Confirmed Type acetaminophen 500 mg tablet 1,000 mg PO Q6H PRN 12/26/21 12/26/21 History aspirin 81 mg tablet,delayed 81 mg PO QAM 12/26/21 12/26/21 History release calcium carbonate 600 mg-vitamin 1 tab PO QAM 12/26/21 12/26/21 History D3 10 mcg (400 unit) tablet (Calcium 600 + D(3)) camphor-menthol 0.2 %-3.5 % 1 applic TOPICAL BID PRN 12/26/21 12/26/21 History topical gel celecoxib 200 mg capsule (Celebrex) 200 mg PO QAM 12/26/21 12/26/21 History diclofenac sodium 1 % topical gel 2 g TOPICAL QID PRN 12/26/21 12/26/21 History fluticasone propionate 50 2 spray INTRANASAL DAILY PRN 12/26/21 12/26/21 History mcg/actuation nasal spray,suspension hydrochlorothiazide 25 mg tablet 25 mg PO QAM 12/26/21 12/26/21 History multivitamin 1 tab PO QAM 12/26/21 12/26/21 History prednisone 1 mg tablet 0 mg PO DAILY 12/26/21 12/26/21 History psyllium husk 3.4 gram/5.4 gram 1 tbsp PO QAM 12/26/21 12/26/21 History oral powder (Metamucil) tolterodine 2 mg capsule,extended 2 mg PO QAM 12/26/21 12/26/21 History release 24 hr (Detrol LA) tramadol 50 mg tablet 50 mg PO Q6H PRN 12/26/21 12/26/21 History valsartan 320 mg tablet 320 mg PO QAM 12/26/21 12/26/21 History Past Med/Surg History Medical History (Updated 02/04/22 @ 13:08 by Angel Quevedo PA-C) Asthma remote hx per pt, normal PFTs per 04/2020 cardio note; denies inhaler use need, chronic and controlled per pt Dyspnea on effort with walking, chronic, denies change or worsening Hyperlipidemia NO MEDS Hypertension controlled, stable per pt Obesity, Class III, BMI 40-49.9 (morbid obesity) Osteoarthritis Pulmonary embolism bilat; 2011-S/P LONG DISTANCE DRIVE-WAS TREATED WITH BLOOD THINNER FOR 6 MONTHS-NO ISSUES SINCE Stress incontinence Surgical History (Updated 12/30/21 @ 08:44 by Amelia Alas PA-C) History of appendectomy History of cardiac cath 04/2020 [facility]-NO STENTS: The left main, left anterior descending, left circumflex, and right coronary artery all do not have any severe flow-limiting stenosis. However, all the vessels are extremely tortuous. Then, we performed left heart catheterization, left ventriculogram. Left ventricular systolic function is normal. Ejection fraction by visual estimate is 45-50%. There is no gradient across the aortic valve. 2011 [facility] NO STENTS NO CARDIOLOGY History of tonsillectomy History of total knee replacement R/L History of total shoulder replacement LEFT. Pharyngitis after 2017 TSA. Grade 1 view, MAC 3 ETT 7.5 OET + PNB. 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 Beliefs That Will Affect Care: None Current Living Situation: Alone current occupational status: retired Feels Safe at Home: Yes Assistive Devices: Denture - Upper, Glasses and Hearing Aid - Bilateral Review of Systems All systems reviewed & are unremarkable except as noted in HPI & below Physical Exam Constitutional: well developed and well nourished; no acute distress Eyes: PERRL, conjunctivae normal, anicteric sclerae ENMT: external ear and nose normal, oropharynx normal Neck: trachea midline, no thyromegaly Respiratory: normal respiratory effort, lungs clear to auscultation Cardiovascular: RRR, no murmur, no edema Musculoskeletal: Right shoulder: Crepitation with ROM. Painful ROM. Anterior glenoid tenderness. Positive impingement signs. abduction to 90 degrees. FF to 150 degrees. Weakness with strength testing. Skin: no rashes, warm and dry Neurologic: patellar DTR's 2+ bilat, sensation intact Psychiatric: A+Ox3, euthymic affect Results & Data ([place]) Diagnostic Findings Right shoulder radiographs demonstrate endstage osteoarthritis with bone on bone glenohumeral joint. MRI demonstrates significant rotator cuff tendinopathy, multiple areas of at least partial tearing possible full thickness tearing difficult to fully assess due to motion artifact
[~2022-02-05 07:25] MED LIST changes: -ACET-1256 PO; -ASPI81TA28 PO; -BUPIVACAINE 0.25% 30 ML VIAL ONE; +BUPIVACAINE 0.5 % 5 MG/1 ML PF 10ML VIAL ONE; -CALC500C70 PO; -CEFAZOLIN 2000 MG/60 ML D5W 60 ML IV SCH; -CLB200 PO; -DEXAMETHASONE 4 MG TAB PO SCH; -DEXAMETHASONE SOD INJ 4 MG/ML VIAL ONE; -FENTANYL CITRATE INJ 50 MCG/1 ML 2 ML VIAL ONE; -GLUC1TAB94 PO; -LACTATED RINGER'S 1000ML 1,000 ML IV SCH; -LACTATED RINGER'S 1000ML IV SCH; -LIDOCAINE HCL 2% 2 ML VIAL (20MG/ML) ONE; +LR 15ML/HR IV SCH; -LUTE20CA PO; -METOCLOPRAMIDE HCL 10 MG TAB PO SCH; +METOCLOPRAMIDE HCL 10 MG TABLET PO SCH; -MIDAZOLAM HCL 1 MG/ML 2ML VIAL ONE; -MULT-506 PO; -POLYSOL OPB; -PROPOFOL IV EMULSION 10 MG/ML 20 ML VIAL IV ONE; -PSYL55.43 PO; -TRAM-10 PO; +TRANEXAMIC ACID 1,000 MG **IV Intra-op IV SCH; -VALS320T PO; -VOLTAREN GEL TOP; +ceFAZolin 2000MG 2,000 MG/15 ML SYR IV SCH; +dexAMETHasone 4 MG TAB PO SCH; +traMADol HCL 50 MG TABLET PO SCH
[2022-02-05] MEDS ORDERED: DEXAMETHASONE SOD INJ 4 MG/ML VIAL ONE (07:34)
[2022-02-05] MEDS ORDERED: PROPOFOL IV EMULSION 10 MG/ML 20 ML VIAL IV ONE (07:34)
[2022-02-05] MEDS ORDERED: ONDANSETRON INJ 2 MG/ML 2 ML VIAL ONE (07:34)
[2022-02-05] MEDS ORDERED: fentaNYL citrate 100 MCG/2 ML VIAL ONE (07:34)
[2022-02-05] MEDS ORDERED: MIDAZOLAM HCL 1 MG/ML 2ML VIAL ONE (07:34)
[2022-02-05] MEDS ORDERED: PHENYLEPHRINE HCL 10 MG/ML VIAL ONE ×2 (07:42→11:30)
[2022-02-05] MEDS ORDERED: fentaNYL citrate 100 MCG/2 ML VIAL IV PRN (08:18)
[2022-02-05] MEDS ORDERED: LABETALOL HCL IV 5 MG/ML 20ML IV PRN (08:18)
[2022-02-05] MEDS ORDERED: HYDROmorphone INJ 1 MG/ML SYRINGE IV PRN (08:18)
[2022-02-05] MEDS ORDERED: PHENYLEPHRINE 100MCG/ML 5ML SYR IV PRN (08:18)
[2022-02-05] MEDS ORDERED: ONDANSETRON INJ 2 MG/ML 2 ML VIAL IV PRN ×2 (08:18→13:26)
[2022-02-05] MEDS ORDERED: ATROPINE SULFATE 0.1 MG/ML 10ML SYR IV PRN (08:18)
[2022-02-05] MEDS ORDERED: ePHEDrine sulfate 50 MG/ML AMP IV PRN (08:18)
[2022-02-05] MEDS ORDERED: EPINEPHrine INJ 1 MG/ML AMP ONE (08:44)
[2022-02-05] MEDS ORDERED: ROPIVACAINE 0.5% 5 MG/ML 30 ML VIAL ONE (08:44)
[2022-02-05] MEDS ORDERED: TRANEXAMIC ACID 100 MG/ML 10 ML VIAL IV ONE (09:13)
--- NOTE | 2022-02-05 09:13 | History & Physical Bridge Note ---
Date of Service February 05, 2022 History & Physical Bridge Note I have examined the patient, reviewed the History & Physical and in the interval since the performance of the History & Physical I have noted the following changes of clinical significance: no changes noted
[2022-02-05] MEDS: TRANEXAMIC ACID 1,000 MG **IV Pre-op IV SCH ×2 (09:30→09:42)
[2022-02-05] MEDS ORDERED: GLYCOPYRROLATE 0.2 MG/ML VIAL ONE (10:03)
[2022-02-05] MEDS ORDERED: ePHEDrine sulfate 50 MG/ML AMP ONE (10:03)
[2022-02-05] MEDS ORDERED: SUCCINYLCHOLINE CHLORIDE 20 MG/ML 10 ML VIAL IV ONE (10:09)
--- NOTE | 2022-02-05 13:01 | Operative Report ---
Post Operative Report Pre & Post Diagnosis Operation Date: 02/05/22 09:50 Pre-Op Diagnosis: Right shoulder end-stage glenohumeral osteoarthritis with rotator cuff tendinopathy rotator cuff tear Post-Op Diagnosis: Right shoulder end-stage glenohumeral osteoarthritis with partial tearing rotator cuff with rotator cuff tendinopathy and calcification with biceps tenosynovitis. I identified the patient and participated in the time-out.: Yes Procedure Operation Date: 02/05/22 09:50 Actual Procedures p Right Reversed Total Shoulder Arthroplasty, biceps tenodesis - Johnny Mayo MD Surgeon Johnny Mayo MD Core Extruder Deyvi WILLIAM Estimated Blood Loss 150 Findings Consistent with Post-Op Diagnosis Specimens Humeral head Drains 2 Hemovac Anesthesia Type General Regional Complications none Disposition Disposition: Recovery Room Indications 81-year-old female with chronic end-stage glenohumeral osteoarthritis her right shoulder. Patient has successful left shoulder replacement. Work-up includes MRI which demonstrates supraspinatus tendon rotator cuff tendinopathy with high- grade partial or full-thickness rotator cuff tear. Description of Procedure The patient was taken to the operating room and anesthetized under regional block and general anesthetic. The patient was positioned on the operating table in a 30 beach chair position with a towel roll under the medial border of the right scapula. The arm was draped free to be able to manipulate the shoulder as needed. The right upper extremity was prepped and draped in usual sterile fashion. Exam demonstrated an obese arm with fairly good passive range of motion in forward flexion which was able to be flexed to 140 degrees with abduction to 90 degrees and external rotation to 40 degrees. An anterior deltopectoral approach was performed. A longitudinal incision was made in the deltopectoral interval. The skin was incised sharply. Subcutaneous flaps were elevated off the fascia. The cephalic vein was dissected out and retracted lateral with the deltoid. The clavipectoral fascia was divided at the lateral margin of the conjoined tendon and extended up to the CA ligament. The following findings were noted: There was synovitis extruding out of the rotator interval area covering some of the subscapularis tendon which had tendinopathy of the upper aspect of the subscapularis. The supraspinatus had significant thinning with a high-grade partial rotator cuff tear and on the undersurface of the supraspinatus there was multiple calcifications and fraying of the tendon. The upper centimeter of the pectoralis was released for inferior exposure. A self-retaining retractor was placed. The biceps tendon findings demonstrated significant hypertrophy of the biceps tendon sheath extending up into the bicipital groove proximally. This tenosynovium was all resected. This revealed a very small thin biceps tendon. The biceps tendon was tenodesed to the pectoralis tendon with #2 FiberWire. I used a [id number]-vb-[id number] suture as well as a whipstitch suture through the small biceps tendon to get better capture of the tissue and the proximal and was mushroomed to help prevent downward retraction. The proximal biceps was resected. The subscapularismuscle fibers were split longitudinally at the level of the circumflex vessels. The circumflex vessels were identified and tied off with silk ties and divided laterally. A Kitner elevator was used to free up the inferior fibers of the subscapularis off of the capsule. The axillary nerve was identified with a tug test and protected with a blunt Jase retractor between the nerve and the capsule. The subscapularis tendon was then taken down off of the lesser tuberosity subperiosteally, a Vicryl traction suture was placed and a subperiosteal dissection was performed along the neck of the humerus as the arm was gradually externally rotated exposing the humeral head. The humeral head findings demonstrated eburnated bone with complete loss of articular cartilage with large inferior periarticular osteophytes and some neck osteophytes attached to the neck as well. Retractors were readjusted and the inferior osteophytes were all resected using an artist chisel and a rongeur. All the neck osteophytes were resected as well. A Antony elevator was used to assist in releasing the capsule of the neck of the humerus. The capsule was divided with Dupree scissors down to the glenoid released off the anterior glenoid and the rotator interval was released to meet the capsular release and a 360 release of the subscapularis was accomplished. The calcifications of the rotator cuff were resected the frayed rotator cuff tissue was resected. The remaining supraspinatus was released off the greater tuberosity for exposure. A Fukuda retractor was placed into the joint retracting the humeral head posterior. Glenoid findings demonstrated complete loss of articular cartilage over the entire glenoid with a large anterior osteophyte and thinning of the anterior glenoid. The labrum and biceps tendon were resected. The labrum was degenerative and several areas of calcification were noted and resected. An anterior-inferior and posterior inferior capsular release were performed with electrocautery and a Antony elevator on bone with the axillary nerve protected inferiorly by the retractor. Attention was then taken to the humeral preparation. The cutting guide was placed into the humeral head. It was positioned at 20 of retroversion. Oscillating saw was used to resect the humeral head giving the cut above the level of the posterior rotator cuff insertion site. The humerus was then prepared for the stem. I used the ascend flex stem from [employer]. The sounds were placed up to a size 3 and the box osteotome was used. I then used trial broaches but the 3 was too proud so we had to back off to a size 2B long trial broach stem. the appropriate sized cut protector was placed. The humerus was then retracted posterior to the glenoid. I first resected the large anterior osteophyte back to normal size glenoid with a rongeur. The glenoid was sized for a 25 mm baseplate. The guide for the baseplate was positioned in a 10 inferior tilt and the central drill hole was made. The reamer for the 25 mm baseplate was used. Bone was very hard and sclerotic. The central drill was widened for the peg. I performed some slight extra reaming so that the baseplate was able to be impacted into the very hard bone. The 2825 mm hydroxyapatite-coated baseplate was impacted into position with a tight press-fit. The base plate was transfixed with superior and inferior locking screws and anterior and posterior compression screws with stable fixation. When placing the anterior screw was noted that there was a slight crack in the 1 o'clock position but it did not affect the stability of the glenoid sphere which was well fixed. The fan reamer was used for the 36 millimeter glenoid sphere. After irrigation the 36 mm standard glenoid sphere was impacted onto the baseplate and the security screw was tightened. The stability of the glenoid sphere was assessed that was solidly stable. Attention was taken back to the humerus. The cut protector was removed and the plus or high offset humeral tray trial was assembled to the trial stem rotated appropriately to get bony coverage and then screwed in position. A trial reduction was performed. A +9 reversed trial insert demonstrated good stability and no shuck. The trials were removed. 3 drill holes are made into the harder bone in the bicipital groove area and 3 #5 FiberWire sutures were placed transosseously. The canal was irrigated with antibiotic solution with bacitracin. The final component was assembled. The final component was +9 reversed insert with the +0 high offset tray assembled to the 2B long ascend flex stem. This was then partially set into the canal and bone graft was placed proximally to enhance press-fit fixation. Bone graft was obtained from the humeral head cancellous bone which was harvested with a rongeur. There was a cyst in the greater tuberosity that was bone grafted and the metaphysis around the stem was grafted before it was fully seated and then the implant was impacted with a tight press-fit. Stability was assessed and it was stable. It was reduced to the glenoid sphere. Stability was verified. Subscapularis was repaired with the #5 FiberWire sutures using Helio-Eugenio suture technique. Lateral row soft tissue repair was performed with #2 FiberWire uwuijx-bh-xjzrj sutures. The supraspinatus was able be mobilized back to the upper subscapularis rotator interval area and sutured with sfiinr-ru-ooekb suture there using #2 FiberWire. The pectoralis was repaired with #2 FiberWire vbxwlv-lt-xjogn sutures reinforcing the biceps tendon tenodesis. The arm was taken through a range of motion which demonstrated 150 degrees forward flexion 100 degrees abduction 60 degrees external rotation and 70 degrees internal rotation without tension on repair. The implant was stable through the range of motion tested. There was no shuck noted with traction on the implant. The wound was copiously irrigated. 2 Hemovac drains were placed. The deltopectoral interval was closed with zrroui-mw-nqffp #1 Vicryl sutures. The subcutaneous tissues were closed with 2-0 Vicryl sutures. The skin was closed with yaakov. Sterile dressings were applied and a shoulder immobilizer. Deyvi WILLIAM my physician medical services assistant acted as assistant director throughout the procedure .He performed functions including patient positioning, arm positioning, prepping and draping, soft tissue retraction, instrument management, suture management and performed the subcutaneous and skin closure and will participate in the postoperative care of the patient. I attest to the content of the Intraoperative Record and any orders documented therein. Any exceptions are noted below.
[2022-02-05] MEDS ORDERED: NALOXONE HCL 0.4 MG/1 ML VIAL/CARP IV PRN (13:26)
[2022-02-05] MEDS ORDERED: TAPENTADOL HCL 50 MG TAB PO PRN (13:26)
[2022-02-05] MEDS ORDERED: bisacodyL 10 MG SUPP PR PRN (13:26)
[2022-02-05] MEDS ORDERED: METOCLOPRAMIDE HCL INJ 5 MG/ML 2 ML VIAL IV PRN (13:26)
[2022-02-05] MEDS ORDERED: MAGNESIUM HYDROXIDE SUSP 30 ML UDC PO PRN (13:26)
[2022-02-05] MEDS ORDERED: HYDROmorphone INJ 0.5 MG/0.5 ML SYR IV PRN (13:26)
[2022-02-05] MEDS ORDERED: FLUTICASONE PROPIONATE NA SPR 16 GM BTL PRN (13:26)
--- NOTE | 2022-02-05 13:31 | Anesthesiology Progress Note ---
Date of Service February 05, 2022 Anesthesia Post Procedure Vital Signs Vital Signs: Temp Pulse Pulse Resp BP Pulse Ox 02/05/22 13:20 36.2 C L 910 H 16 116/62 90 02/05/22 13:10 92 H 19 138/70 96 02/05/22 13:00 93 H 20 128/76 97 02/05/22 12:50 91 H 17 117/68 98 02/05/22 12:43 36.0 C L 95 H 18 117/86 95 02/05/22 08:16 36.6 C 79 20 145/76 H 97 Transfer of Care Handoff Completed per policy Notes Mental Status: alert / awake / arousable Patient Amnestic to Procedure: Yes Nausea / Vomiting: adequately controlled Pain: adequately controlled Airway Patency, RR, SpO2: stable & adequate BP & HR: stable & adequate Hydration State: stable & adequate Anesthetic Complications: no major complications apparent and Pt Satisfied with anesthetic care Notes: The patient is awake and comfortable. Her HR is now 87 and her SpO2 is 96 on 2 L NC oxygen. Her other vital signs are stable.
--- NOTE | 2022-02-05 13:39 | XRay Report ---
XR shoulder RT min 2V routine CLINICAL HISTORY: Post shoulder surgery TECHNIQUE: 3 views of the right shoulder were obtained. Comparison: None available at the time of this dictation. FINDINGS: Patient is status post shoulder arthroplasty with expected postsurgical changes including soft tissue swelling, subcutaneous emphysema, and surgical staple placement. No periarticular lucency or hardwar e fracture is seen. IMPRESSION: Expected postoperative appearance status post placement of shoulder arthroplasty. ACT 112: Negative or not required by law. Electronically signed by: Anibal Olivo M.D. 02/05/2022 1:37 PM
[2022-02-05] MEDS ORDERED: SODIUM CHLORIDE 0.9% 1000ML 1,000 ML IV SCH (13:45)
[2022-02-05] MEDS: ACETAMINOPHEN 500 MG TAB PO SCH ×2 (14:16→22:29)
--- NOTE | 2022-02-05 16:49 | Hospitalist Consultation ---
Date of Consultation February 05, 2022 Assessment & Plan (1) Rotator cuff arthropathy of right shoulder: S/p Right Reversed Total Shoulder Arthroplasty, biceps tenodesis with Johnny Mayo MD on 02/05/2022. - Uncomplicated per OP note. EBL was 150 mL. At risk for acute blood loss anemia; will follow and give IV iron if indicated. - DVT ppx per primary team: Juan Antoniorelnamita (2) Hypertension: BP is 115/80 after surgery. - Will hold HCTZ for now - Continue valsartan (3) Pulmonary embolism: Hx of in 2011. Provoked. But this would indicate higher risk. - Agree with Xarelto as per primary team (4) Asthma: Per notes, very mild. - Albuterol PRN (5) Hyperlipidemia: Diet-controlled. - No inpatient management needed History of Present Illness Attending Physician: Johnny Mayo MD History of Present Illness 81yo F w/ hx of HTN and HLD who presents for medical consult after a Right Reversed Total Shoulder Arthroplasty, biceps tenodesis with Johnny Mayo MD on 02/05/2022. Per PCP notes, she had been having right shoulder pain that was recalcitrant to conservative measures including PT and cortisone injection. Her surgery was uncomplicated. EBL was 150 mL. The patient still has her nerve block active and is not having much pain. Allergies Allergy/AdvReac Type Severity Reaction Status Date / Time oxycodone AdvReac Intermediate Nausea and Verified 02/05/22 08:04 vomiting Home Medications Medication Instructions Recorded Confirmed Type acetaminophen 500 mg tablet 1,000 mg PO Q6H PRN 12/26/21 02/05/22 History aspirin 81 mg tablet,delayed 81 mg PO QAM 12/26/21 02/05/22 History release calcium carbonate 600 mg-vitamin 1 tab PO QAM 12/26/21 02/05/22 History D3 10 mcg (400 unit) tablet (Calcium 600 + D(3)) celecoxib 200 mg capsule (Celebrex) 200 mg PO QAM 12/26/21 02/05/22 History diclofenac sodium 1 % topical gel 2 g TOPICAL QID PRN 12/26/21 02/05/22 History fluticasone propionate 50 2 spray INTRANASAL DAILY PRN 12/26/21 02/05/22 History mcg/actuation nasal spray,suspension hydrochlorothiazide 25 mg tablet 25 mg PO QAM 12/26/21 02/05/22 History multivitamin 1 tab PO QAM 12/26/21 02/05/22 History psyllium husk 3.4 gram/5.4 gram 1 tbsp PO QAM 12/26/21 02/05/22 History oral powder (Metamucil) tolterodine 2 mg capsule,extended 2 mg PO QAM 12/26/21 02/05/22 History release 24 hr (Detrol LA) tramadol 50 mg tablet 50 mg PO Q6H PRN 12/26/21 02/05/22 History valsartan 320 mg tablet 320 mg PO QAM 12/26/21 02/05/22 History Patient History Medical History (Updated 02/05/22 @ 16:46 by Oskar Brush MD) Asthma remote hx per pt, normal PFTs per 04/2020 cardio note; denies inhaler use need, chronic and controlled per pt Dyspnea on effort with walking, chronic, denies change or worsening Hyperlipidemia NO MEDS Hypertension controlled, stable per pt Obesity, Class III, BMI 40-49.9 (morbid obesity) Osteoarthritis Pulmonary embolism bilat; 2011-S/P LONG DISTANCE DRIVE-WAS TREATED WITH BLOOD THINNER FOR 6 MONTHS-NO ISSUES SINCE Stress incontinence Surgical History History of appendectomy History of cardiac cath 04/2020 [facility]-NO STENTS: The left main, left anterior descending, left circumflex, and right coronary artery all do not have any severe flow-limiting stenosis. However, all the vessels are extremely tortuous. Then, we performed left heart catheterization, left ventriculogram. Left ventricular systolic function is normal. Ejection fraction by visual estimate is 45-50%. There is no gradient across the aortic valve. 2011 [facility] NO STENTS NO CARDIOLOGY History of tonsillectomy History of total knee replacement R/L History of total shoulder replacement LEFT. Pharyngitis after 2017 TSA. Grade 1 view, MAC 3 ETT 7.5 OET + PNB. S/P foot surgery, right BUNIONECTOMY Family History Other No known health problems Social History Smoking Status: Never smoker Second Hand Exposure: No; Do You Dip or Chew Tobacco: No; Hx Alcohol Use: No Hx Substance Use: No Preferred Language: Mexican Communication Ability: Effective Naphthalene Still Operator Required: No Beliefs That Will Affect Care: None Current Living Situation: Alone current occupational status: retired Other Information That Helps Us Care for You: No Feels Safe at Home: Yes Safety Concerns: Feels Safe At This Time Assistive Devices: Denture - Upper, Glasses and Hearing Aid - Bilateral Assistive Devices Comment: PARTIAL/POWER CHAIR FOR LONG DISTANCES Review of Systems Review of Systems: All systems reviewed & are unremarkable except as noted in HPI & below Physical Exam Constitutional: WD/WN, vitals as above Eyes: EOM intact bilaterally; no conjunctival abnormality ENMT: external ear and nose normal, oropharynx normal Neck: trachea midline, no thyromegaly normal visual inspection Respiratory: normal respiratory effort, lungs clear to auscultation no respiratory distress Cardiovascular: RRR, no murmur, no edema Gastrointestinal (Abdomen): Inspection/Auscultation: abdomen normal to inspe ction; abdomen not distended Musculoskeletal: Extremities: strength 5/5 throughout (Apart from right UE.) and + limited ROM of upper extremity Right (Due to surgery) Skin: no rashes, warm and dry Neurologic: moves all extremities and awake Psychiatric: Orientation: alert, oriented to person and cooperative Results & Data Results & Data ([facility]) Vital Signs (Past 12 Hours) Vital Signs Temp Pulse Pulse Resp BP Pulse Ox 02/05/22 16:05 100 H 20 115/83 97 02/05/22 15:05 93 H 19 110/79 95 02/05/22 14:35 97 H 20 136/79 95 02/05/22 14:05 36.5 C 92 H 16 123/84 94 02/05/22 13:50 91 H 19 121/80 95 02/05/22 13:35 87 16 125/84 95 02/05/22 13:20 36.2 C L 91 H 16 116/62 90 02/05/22 13:10 92 H 19 138/70 96 02/05/22 13:00 93 H 20 128/76 97 02/05/22 12:50 91 H 17 117/68 98 02/05/22 12:43 36.0 C L 95 H 18 117/86 95 02/05/22 08:16 36.6 C 79 20 145/76 H 97 PG Care Time/CCT Total # of Minutes Spent Total Time Spent with Patient: Total time spent is greater than 50% in coordination of care (as documented) at patient's floor/unit and/or counseling patient: Coding Level of Care Code 09045 Inpt Consult Level 4 Diagnoses Rotator cuff arthropathy of right shoulder M12.811 Hypertension I10 Pulmonary embolism I26.99 Asthma J45.909 Hyperlipidemia E78.5
[2022-02-05] MEDS ORDERED: DICLOFENAC SOD 1% GEL 100 GM TUBE EXT PRN (17:23)
[2022-02-05] MEDS: ceFAZolin 2000MG 2,000 MG/15 ML SYR IV SCH (18:34)
[2022-02-05] MEDS: DOCUSATE SODIUM 100 MG CAP PO SCH (20:17)
[2022-02-05] MEDS ORDERED: SENNA 8.6 MG TAB PO SCH (21:00)
[2022-02-06] MEDS: ceFAZolin 2000MG 2,000 MG/15 ML SYR IV SCH (01:28)
[2022-02-06] MEDS: ACETAMINOPHEN 500 MG TAB PO SCH (05:41)
[2022-02-06] MEDS ORDERED: ACETAMINOPHEN W/CODEINE #3 1 TAB PO PRN (08:09)
[2022-02-06] MEDS ORDERED: HYDROmorphone INJ 0.5 MG/0.5 ML SYR IV PRN (08:10)
[2022-02-06] MEDS: DOCUSATE SODIUM 100 MG CAP PO SCH (08:23)
[2022-02-06] MEDS ORDERED: NON-FORMULARY MEDICATION (Multivitamin Tablet) PO SCH (09:00)
[2022-02-06] MEDS ORDERED: VALSARTAN 80 MG TAB PO SCH (09:00)
[2022-02-06] MEDS ORDERED: PSYLLIUM or GUAR GUM FIBER POWDER PACKET PO SCH (09:00)
[2022-02-06] MEDS ORDERED: hydroCHLOROthiazide 25 MG TAB PO SCH (09:00)
[2022-02-06] MEDS ORDERED: CALCIUM 600MG + VIT D 400 IU TAB PO SCH (09:00)
[2022-02-06] MEDS ORDERED: RIVAROXABAN 10 MG TABLET PO SCH (09:00)
[2022-02-06] MEDS ORDERED: MULTIVITAMIN TAB PO SCH (09:00)
[2022-02-06] MEDS ORDERED: TOLTERODINE TARTRATE LA 2 MG CAPCR PO SCH (09:00)
[2022-02-06 09:06] LABS: Eosinophils # (auto) 0.05 K/uL (0-0.5); Eosinophils % (auto) 0.4 %; Hematocrit (blood only) 34.1 % (37-47); Immature Granulocytes # (auto) 0.03 K/uL (0.00-0.02); Immature Granulocytes % (auto) 0.2 %; Lymphocytes # (auto) 1.69 K/uL (1.2-3.4); Lymphocytes % (auto) 13.6 %; Mean Corpuscular Hgb Conc 32.3 g/dL (32-36); Mean Corpuscular Volume 86.8 fL (80-100); Mean Platelet Volume 9.2 fL (7.4-10.4); Neutrophils # (auto) 9.67 K/uL (1.4-6.5); Neutrophils % (auto) 77.8 %; Platelet Count 302 K/uL (130-400); RDW Coefficient of Variation 15.2 % (11.5-14.5); RDW Standard Deviation 48.7 fL (36.4-46.3); Red Blood Count 3.93 M/uL (4.2-5.4); White Blood Count 12.44 K/uL (4.8-10.8)
[2022-02-06 09:28] LABS: BUN Creatinine Ratio 28.8 (10-20); Calcium 8.8 mg/dl (8.5-10.1); Creatinine Clr Calc Pharmacy 43.4 ml/min; Est GFR (African American) 54.7 ml/min; Est GFR (Non-African American) 47.2 ml/min; Potassium 4.2 mmol/L (3.5-5.1)
--- NOTE | 2022-02-06 10:40 | Orthopedic Progress Note ---
Date of Service February 06, 2022 Assessment & Plan (1) Rotator cuff arthropathy of right shoulder: Plan: Postop day 1 status post right reverse TSA PT/OT protocols. Nonweightbearing right upper extremity. DVT prophylaxis-SCDs Pain management-patient currently taking Tylenol 3 every 6 hours. We discussed her pain medications at home and that she would be going home on 1 pain medication. We discussed that she had tramadol at home but we also stated that she should not be taking both. She has agreed to take the Tylenol 3 initially and that if its not working that she will call the office for further assistance. DC planning-no organized therapy for the first 2 weeks until seen back in the office. Plan for discharge to home. Admission and Anticipated Discharge Date Admission Date: February 05, 2022 Subjective Postop day 1 Patient currently finishing up her therapy session. She was having a bit of pain in the shoulder but did not want to take the Dilaudid. Dr. Brush who was seeing her for the hospitalist service talk to her about different medications and started her on Tylenol 3 1 tab every 6 hours as needed. Currently she st ates the pain is around a 4-5. No other complaints at this time. He is hoping to go home today. Physical Exam Physical Exam: Dressings are clean, dry, and intact. Calves are soft and nontender. Neurovascular is intact. Has good sensation and she is moving her wrist and fingers well. Cap refill is less than 2 seconds. Results & Data ([facility]) Vital Signs (Past 12 Hours) Vital Signs Temp Pulse Resp BP Pulse Ox 02/06/22 08:12 36.9 C 75 16 122/75 96 02/06/22 03:33 36.8 C 78 18 124/77 95 02/05/22 22:40 36.6 C 89 18 111/71 93 Laboratory Results Laboratory Results WBC 12.44 K/uL (4.8-10.8) H 02/06/22 08:38 RBC 3.93 M/uL (4.2-5.4) L 02/06/22 08:38 Hgb 11.0 g/dL (12.0-16.0) L 02/06/22 08:38 Hct 34.1 % (37-47) L 02/06/22 08:38 MCV 86.8 fL (80-100) 02/06/22 08:38 MCH 28.0 pg (25-34) 02/06/22 08:38 MCHC 32.3 g/dL (32-36) 02/06/22 08:38 RDW Std Deviation 48.7 fL (36.4-46.3) H 02/06/22 08:38 RDW Coeff of Leslee 15.2 % (11.5-14.5) H 02/06/22 08:38 Plt Count 302 K/uL (130-400) 02/06/22 08:38 MPV 9.2 fL (7.4-10.4) 02/06/22 08:38 Immature Gran % (Auto) 0.2 % 02/06/22 08:38 Neut % (Auto) 77.8 % 02/06/22 08:38 Lymph % (Auto) 13.6 % 02/06/22 08:38 Leslie % (Auto) 8.0 % 02/06/22 08:38 Eos % (Auto) 0.4 % 02/06/22 08:38 Baso % (Auto) 0.0 % 02/06/22 08:38 Neut # (Auto) 9.67 K/uL (1.4-6.5) H 02/06/22 08:38 Lymph # (Auto) 1.69 K/uL (1.2-3.4) 02/06/22 08:38 Leslie # (Auto) 1.00 K/uL (0.11-0.59) H 02/06/22 08:38 Eos # (Auto) 0.05 K/uL (0-0.5) 02/06/22 08:38 Baso # (Auto) 0.00 K/uL (0-0.2) 02/06/22 08:38 Immature Gran # (Auto) 0.03 K/uL (0.00-0.02) H 02/06/22 08:38 Sodium 134 mmol/L (136-145) L 02/06/22 08:38 Potassium 4.2 mmol/L (3.5-5.1) 02/06/22 08:38 Chloride 101 mmol/L (98-107) 02/06/22 08:38 Carbon Dioxide 28 mmol/L (21-32) 02/06/22 08:38 Anion Gap 5 (3-11) 02/06/22 08:38 BUN 32 mg/dl (6-23) H 02/06/22 08:38 Creatinine 1.11 mg/dl (0.6-1.2) 02/06/22 08:38 Est Cr Clr Drug Dosing 43.4 ml/min 02/06/22 08:38 Est GFR ( Amer) 54.7 ml/min 02/06/22 08:38 Est GFR (Non-Af Amer) 47.2 ml/min 02/06/22 08:38 BUN/Creatinine Ratio 28.8 (10-20) H 02/06/22 08:38 Glucose 100 mg/dl (70-99(Fasting)) H 02/06/22 08:38 Calcium 8.8 mg/dl (8.5-10.1) 02/06/22 08:38 SARS-CoV-2, RNA, NAAT NEGATIVE (NEGATIVE) 02/05/22 08:10 Impressions Shoulder X-Ray 02/05/22 12:46 XR shoulder RT min 2V routine CLINICAL HISTORY: Post shoulder surgery TECHNIQUE: 3 views of the right shoulder were obtained. Comparison: None available at the time of this dictation. FINDINGS: Patient is status post shoulder arthroplasty with expected postsurgical changes including soft tissue swelling, subcutaneous emphysema, and surgical staple placement. No periarticular lucency or hardware fracture is seen. IMPRESSION: Expected postoperative appearance status post placement of shoulder arthroplasty. ACT 112: Negative or not required by law. Electronically signed by: Anibal Olivo M.D. 02/05/2022 1:37 PM
--- NOTE | 2022-02-06 17:51 | Hospitalist Progress Note ---
Date of Service February 06, 2022 Assessment & Plan (1) Rotator cuff arthropathy of right shoulder: Plan: S/p Right Reversed Total Shoulder Arthroplasty, biceps tenodesis with Johnny Mayo MD on 02/05/2022. - Uncomplicated per OP note. EBL was 150 mL. At risk for acute blood loss anemia; will follow and give IV iron if indicated. - DVT ppx per primary team: Mal (2) Hypertension: Plan: BP is 115/80 after surgery. - Held HCTZ after surgery; can restart now. - Continue valsartan (3) Pulmonary embolism: Plan: Hx of in 2011. Provoked. But this would indicate higher risk. - Agree with Mal as per primary team (4) Asthma: Plan: Per notes, very mild. - Albuterol PRN (5) Hyperlipidemia: Plan: Diet-controlled. - No inpatient management needed Admission and Anticipated Discharge Date Admission Date: February 05, 2022 Subjective Doing well today. Shoulder pain was only a 1-2 in the morning, but then up to a 3-4 when I saw her. Otherwise, doing well. Physical Exam Constitutional: WD/WN, vitals as above Eyes: EOM intact bilaterally; no conjunctival abnormality ENMT: external ear and nose normal, oropharynx normal Neck: trachea midline, no thyromegaly normal visual inspection Respiratory: normal respiratory effort, lungs clear to auscultation no respiratory distress Cardiovascular: RRR, no murmur, no edema Gastrointestinal (Abdomen): Inspection/Auscultation: abdomen normal to inspection; abdomen not distended Musculoskeletal: Extremities: strength 5/5 throughout (Apart from right UE.) and + limited ROM of upper extremity Skin: no rashes, warm and dry Neurologic: moves all extremities and awake Psychiatric: Orientation: alert, oriented to person and cooperative Results & Data Results & Data ([facility]) Vital Signs (Past 12 Hours) Vital Signs Temp Pulse Pulse Resp BP Pulse Ox 02/06/22 11:01 36.9 C 100 H 75 16 122/75 96 02/06/22 08:12 36.9 C 75 16 122/75 96 PG Care Time/CCT Total # of Minutes Spent Total Time Spent with Patient: Total time spent is greater than 50% in coordination of care (as documented) at patient's floor/unit and/or counseling patient: Coding Level of Care Code 45466 Subseq Hosp Care Lvl 2 Diagnoses Rotator cuff arthropathy of right shoulder M12.811 Hypertension I10 Pulmonary embolism I26.99 Asthma J45.909 Hyperlipidemia E78.5
== END 2022-02-06 13:50 | disposition home or self-care (01) | DRG 483 ==
LOC: ASU 07:25 → PACUINP 12:46 → 3N 16:26